=== PATIENT | female | born 1930 | race Caucasian/White ===

== ENCOUNTER 2016-12-30 03:01 | Emergency (ER) | payer MEDICARE, OTHER ==
[~2016-12-30] VITALS: Ht 160 cm; Wt 56.0 kg
[~2016-12-30 03:01] MED LIST: ALIGN PROBIOTIC; ARIC5TAB OR; ASPI325T24 PO; BACT800T5 PO; CALC-197 PO; CENTTAB9 PO; CITA20TA4 PO; CRAN250C2 PO; ESTR42.5V PV; FISH1000 PO; FOLI200T PO; HYDRO2.5%T TOP; LOVA10TA PO; MIRA33502 PO; NEXI20CA PO; SUCR1TAB6 PO; XANA0.5T; [UNRECOGNIZED DRUG - CODE] PO
[2016-12-30 03:03] VITALS: BP 140/70; PULSE 64; RESP 15; TEMP 97.8; O2SAT 96
--- NOTE | 2016-12-30 03:20 | PD ---
HPI Chief Complaint: Fall Time Seen by Provider: 03:12 Travel History International Travel<30 days: No Contact w/Intl Traveler<30days: No Traveled to known affect area: No History of Present Illness HPI WHILE TRYING TO GET OUT OF BED, FOOT GOT CAUGHT ON SHEETS AND SHE HIT HER FOREHEAD ON WOODEN NIGHT STAND, NO LOC, SON CAME SOON AFTER HEARING NOISE AND NO LOC, NO SEIZURE ACTIVITY AND WAS AMBULATORY ON HER OWN. ALSO NO VISUAL CHANGES, NO N/V/ AT THIS POINT PFSH Past Medical History Autoimmune Disease: Yes (ARTHRITIS) Anxiety: Yes Cardiovascular Problems: No High Cholesterol: Yes Dementia: Yes Diminished Hearing: No GERD: Yes Genitourinary: Yes (CHRONIC UTI'S) Musculoskeletal: Yes (OSTEOARTHRITIS) Menopausal: Yes Past Surgical History Abdominal Surgery: Yes (BOWEL SURGERY) Appendectomy: Yes Hysterectomy: Yes Oral Surgery: Yes (JAW WIRED FEB 2012) Social History Alcohol Use: No Tobacco Use: No Substance Use: No Allergies-Medications (Allergen,Severity, Reaction): Coded Allergies: No Known Allergies (Verified , 06/09/14) Reported Meds & Prescriptions Reported Meds & Active Scripts Active Reported Ecotrin Low Strength (Aspirin) 81 Mg Tabdr 81 Mg PO DAILY Sucralfate 1 Gm Tab 1 Gm PO DAILY on empty stomach Memantine 10 Mg Tab 10 Mg PO BID Citalopram (Citalopram Hydrobromide) 40 Mg Tab 40 Mg PO DAILY Donepezil 10 Mg Tab 10 Mg PO HS Estrace Vaginal (Estradiol) 0.01% Cream 1 Appl VAGINAL HS Alprazolam 0.25 Mg Tab 0.25 Mg PO Q4H PRN Alendronate (Alendronate Sodium) 70 Mg Tab 70 Mg PO Q7D [Align Probiotic] DAILY Review of Systems HENT: Positive: Headaches Physical Exam Narrative GENERAL: SKIN: Warm and dry. HEAD: LEFT HEMIFOREHEAD HAS A 5CM SCALP CONTUSION NOTED, NO STEPOFF. Normocephalic. EYES: Pupils equal and round. No scleral icterus. No injection or drainage. NO PHOTOPHOBIA ENT: No nasal bleeding or discharge. Mucous membranes pink and moist. NO HEMOTYMPANUM NECK: Trachea midline. No JVD. CARDIOVASCULAR: Regular rate and rhythm. RESPIRATORY: No accessory muscle use. Clear to auscultation. Breath sounds equal bilaterally. GASTROINTESTINAL: Abdomen soft, non-tender, nondistended. Hepatic and splenic margins not palpable. MUSCULOSKELETAL: Extremities without clubbing, cyanosis, or edema. No obvious deformities. NEUROLOGICAL: Awake and alert. No obvious cranial nerve deficits. Motor grossly within normal limits. Five out of 5 muscle strength in the arms and legs. Normal speech. PSYCHIATRIC: Appropriate mood and affect; insight and judgment normal. Data Data Last Documented VS Vital Signs Date Time Temp Pulse Resp B/P Pulse Ox O2 Delivery O2 Flow Rate FiO2 12/30/16 03:03 97.8 64 15 140/[address] Brain W/O Iv Contrast(Rout) (12/30/16 03:16) Urinalysis - C+S If Indicated (12/30/16 04:07) Labs Laboratory Tests Test 12/30/16 04:10 Urine Color YELLOW Urine Turbidity HAZY Urine pH 6.5 Urine Specific [place] 1.011 Urine Protein NEG mg/dL Urine Glucose (UA) NEG mg/dL Urine Ketones NEG mg/dL Urine Occult Blood NEG Urine Nitrite NEG Urine Bilirubin NEG Urine Urobilinogen LESS THAN 2.0 MG/DL Urine Leukocyte Esterase MOD Urine RBC 2 /hpf Urine WBC 4 /hpf Urine Squamous Epithelial 2 /hpf Cells Urine Renal Epithelial Cells <1 /hpf Urine Mucus FEW /lpf Microscopic Urinalysis Comment CULT NOT INDICATED MDM Medical Decision Making Medical Screen Exam Complete: Yes Emergency Medical Condition: Yes Medical Record Reviewed: Yes Differential Diagnosis ICH V SCALP CONTUSION V SKULL FX Narrative Course PATIENT VSS, AMBULATORY WITHOUT ASSISTANCE, HAD GREAT SENSE OF HUMOR, CT HEAD DIDNOT SHOW ANY ICH NOR ANY SKULL FX Diagnosis Primary Impression: LEFT FRONTAL SCALP CONTUSION Additional Impression: PYURIA Patient Instructions: General Instructions, Scalp Contusion in Adults (ED) Scripts Nitrofurantoin Monohydrate Macrocrystals (Macrobid)100 Mg [id number] Mg PO BID #14 CAP Prov:Mango Ortega MD 12/30/16 Disposition: 01 DISCHARGE HOME Condition: Stable Mango Ortega MD Dec 30, 2016 03:20
[2016-12-30] MEDS ORDERED: ALEN1TAB48 PO (03:21)
[2016-12-30] MEDS ORDERED: MEMA1TAB2 PO (03:21)
[2016-12-30] MEDS ORDERED: SUCR1TAB PO (03:21)
[2016-12-30] MEDS ORDERED: CITA40TA4 PO (03:21)
[2016-12-30] MEDS ORDERED: DONE10TA7 PO (03:21)
[2016-12-30] MEDS ORDERED: ESTR42.5V VAGINAL (03:21)
[2016-12-30] MEDS ORDERED: ALPR0.25 PO (03:21)
[2016-12-30] MEDS ORDERED: ASPI-147 PO (03:21)
--- NOTE | 2016-12-30 03:49 | RADRPT ---
EXAM DATE/TIME: 12/30/2016 03:27 [facility] COMPARISON: CT BRAIN W/O CONTRAST, March 16, 2011, 3:37. INDICATIONS : Trauma, fall. Contusion to left forehead. RADIATION DOSE: 56.35 CTDIvol (mGy) MEDICAL HISTORY : Dementia. SURGICAL HISTORY : None. ENCOUNTER: Initial ACUITY: 1 day PAIN SCALE: 5/10 LOCATION: cranial TECHNIQUE: Multiple contiguous axial images were obtained of the head. Using automated exposure control and adj ustment of the mA and/or kV according to patient size, radiation dose was kept as low as reasonably a chievable to obtain optimal diagnostic quality images. DICOM format image data is available electro nically for review and comparison. FINDINGS: CEREBRUM: The ventricles are normal for age. Diffuse, symmetric cortical atrophy. No evidence of midline shift , mass lesion, hemorrhage or acute infarction. No extra-axial fluid collections are seen. POSTERIOR FOSSA: The cerebellum and brainstem are intact. The 4th ventricle is midline. The cerebellopontine angle i s unremarkable. EXTRACRANIAL: The visualized portion of the orbits is intact. SKULL: The calvaria is intact. No evidence of skull fracture. Small cephalhematoma over the left frontal ayleen ne. CONCLUSION: 1. Small cephalhematoma over the left frontal bone with no associated fracture. 2. Chronic changes with diffuse and symmetric cortical atrophy. 3. No acute intracranial process or trauma. Robert Peters MD on December 30, 2016 at 3:45 Board Certified Radiologist. This report was verified electronically.
[2016-12-30 04:23] LABS: BLOOD, URINE NEG (NEG); COMMENT (UR) CULT NOT INDICATED; CULTURE IF INDICATED CULT NOT INDICATED; GLUCOSE,URINE NEG (NEG); KETONE, URINE NEG (NEG); MUCUS URINE FEW /lpf (OCC); NITRITE,URINE NEG (NEG); PH, URINE 6.5 (5.0-8.5); RENAL EPITHELIAL CELLS <1 /hpf; SQUAMOUS EPITHELIAL CELL URINE 2 /hpf (0-5); URINE COLOR YELLOW (YELLW/STRAW)
[2016-12-30] MEDS ORDERED: MACR100C2 PO (04:30)
== END 2016-12-30 04:41 | disposition home or self-care (01) ==
LOC: NEPC 03:01
DX: S00.03XA Contusion of scalp, initial encounter (principal); N39.0 Urinary tract infection, site not specified; M13.80 Other specified arthritis, unspecified site; F41.9 Anxiety disorder, unspecified; E78.00 Pure hypercholesterolemia, unspecified; F03.90 Unspecified dementia, unspecified severity, without behavioral disturbance, psychotic disturbance, mood disturbance, and anxiety; K21.9 Gastro-esophageal reflux disease without esophagitis; W06.XXXA Fall from bed, initial encounter; W18.09XA Striking against other object with subsequent fall, initial encounter
CPT/HCPCS: 70450; 81001; 99284

== ENCOUNTER 2017-03-09 23:12 | Observation (INO) | payer MEDICARE, OTHER ==
[~2017-03-09] VITALS: Ht 162.6 cm; Wt 65.0 kg
[~2017-03-09 23:12] MED LIST changes: +ALEN1TAB48 PO; +ALPR0.25 PO; -ARIC5TAB OR; +ASPI-147 PO; -ASPI325T24 PO; -BACT800T5 PO; -CALC-197 PO; -CENTTAB9 PO; -CITA20TA4 PO; +CITA40TA4 PO; -CRAN250C2 PO; +DONE10TA7 PO; -ESTR42.5V PV; +ESTR42.5V VAGINAL; -FISH1000 PO; -FOLI200T PO; -HYDRO2.5%T TOP; -LOVA10TA PO; +MACR100C2 PO; +MEMA1TAB2 PO; -MIRA33502 PO; -NEXI20CA PO; +SUCR1TAB PO; -SUCR1TAB6 PO; -XANA0.5T; -[UNRECOGNIZED DRUG - CODE] PO
[2017-03-10] MEDS ORDERED: SODIUM CHLORIDE 0.9% INJ 100 ML ONE (02:20)
[2017-03-10 03:00] VITALS: PULSE 58; RESP 16
[2017-03-10] MEDS ORDERED: NALOXONE HCL 0.4 MG/ML AMP IV PUSH PRN (04:00)
[2017-03-10] MEDS ORDERED: SODIUM CHLORIDE 0.9% FLUSH 10 ML FLUSH IV FLUSH PRN (04:00)
[2017-03-10] MEDS ORDERED: cefTRIAXone 1,000 MG/NS 100 ML IV ONE ×4 (04:15→07:15)
--- NOTE | 2017-03-10 04:33 | HHI.HP ---
[facility] Edwige Murdock MD Admission Diagnosis Diagnoses: Chief Complaint: ams Travel History International Travel<30 Days: No Contact w/Intl Traveler <30 Da: No History of Present Illness Written by PAMELA Arellano acting as scribe for [Ulices] on 03/10/17 at 04: 28. 87 y/o female with a history of dementia, and depression was brought into the ED by her son for increased confusion. Per the patient she does not know why she is here. Per the ED physician the son stated the patient was sitting on the toilet and starring off and mumbling. She denies any chest pain, sob, fever, chills. She states she has to pee. While on the bed howard she does complain of a burning sensation. Son is not at bedside for questioning. Review of Systems Except as stated in HPI: all other systems reviewed are Neg Past Family Social History Past Medical History Dementia Depression Past Surgical History Hysterectomy Reported Medications Reported Meds & Active Scripts Active Macrobid (Nitrofurantoin Monohydrate Macrocrystals) 100 Mg Capsule 100 Mg PO BID Reported Ecotrin Low Strength (Aspirin) 81 Mg Tabdr 81 Mg PO DAILY Sucralfate 1 Gm Tab 1 Gm PO DAILY on empty stomach Memantine 10 Mg Tab 10 Mg PO BID Citalopram (Citalopram Hydrobromide) 40 Mg Tab 40 Mg PO DAILY Donepezil 10 Mg Tab 10 Mg PO HS Estrace Vaginal (Estradiol) 0.01% Cream 1 Appl VAGINAL HS Alprazolam 0.25 Mg Tab 0.25 Mg PO Q4H PRN Alendronate (Alendronate Sodium) 70 Mg Tab 70 Mg PO Q7D [Align Probiotic] DAILY Allergies: Coded Allergies: No Known Allergies (Verified , 06/09/14) Active Ordered Medications Current Medications Medications (Trade) Dose Ordered Sig/Abraham Route Start Time Stop Time Status Last Admin (NS Flush) 2 ml UNSCH PRN IV FLUSH 03/10/17 04:00 (NS Flush) 2 ml BID IV FLUSH 03/10/17 09:00 (Narcan Inj) 0.4 mg UNSCH PRN IV PUSH 03/10/17 04:00 Ceftriaxone Sodium 1000 mg/ Sodium Chloride 100 ml @ 200 mls/hr ONCE ONCE IV 03/10/17 04:15 03/10/17 04:44 Family History Patient denies any family history. Social History Tobacco use: Denies Alcohol use: wine occasionally Physical Exam Physical Exam GENERAL: This is a well-nourished, well-developed patient. SKIN: No rashes, ecchymoses or lesions. Cool and dry. HEAD: Atraumatic. Normocephalic. EYES: Pupils equal round and reactive. ENT: Nose without bleeding, purulent drainage or septal hematoma. Airway patent. NECK: Trachea midline. No JVD or lymphadenopathy. CARDIOVASCULAR: Regular rate and rhythm without murmurs, gallops, or rubs. RESPIRATORY: Clear to auscultation. Breath sounds equal bilaterally. No wheezes , rales, or rhonchi. GASTROINTESTINAL: Abdomen soft, non-tender, nondistended. MUSCULOSKELETAL: Extremities without clubbing, cyanosis, or edema. No joint tenderness, effusion, or edema noted. No calf tenderness. NEUROLOGICAL: Awake and confused. Motor and sensory grossly within normal limits. Normal speech. Caprini VTE Risk Assessment Caprini VTE Risk Assessment: Mod/High Risk (score >= 2) Caprini Risk Assessment Model Point Value = 1 Point Value = 2 Point Value = 3 Point Value = 5 Age 41-60 Minor surgery BMI > 25 kg/m2 Swollen legs Varicose veins or History of unexplained or recurrent spontaneous Oral contraceptives or hormone replacement Sepsis (< 1 month) Serious lung disease, including pneumonia (< 1 month) Abnormal pulmonary function Acute myocardial infarction Congestive heart failure (< 1 month) History of inflammatory bowel disease Medical patient at bed rest Age 61-74 Arthroscopic surgery Major open surgery (> 45 min) Laparoscopic surgery (> 45 min) Malignancy Confined to bed (> 72 hours) Immobilizing plaster cast Central venous access Age >= 75 History of VTE Family history of VTE Factor V Leiden Prothrombin [id number] Lupus anticoagulant Anticardiolipin antibodies Elevated serum homocysteine Heparin-induced thrombocytopenia Other congenital or acquired thrombophilia Stroke (< 1 month) Elective arthroplasty Hip, pelvis, or leg fracture Acute spinal cord injury (< 1 month) Prophylaxis Regimen Total Risk Factor Score Risk Level Prophylaxis Regimen 0-1 Low Early ambulation 2 Moderate Order ONE of the following: *Sequential Compression Device (SCD) *Heparin 5000 units SQ BID 3-4 Higher Order ONE of the following medications: *Heparin 5000 units SQ TID *Enoxaparin/Lovenox 40 mg SQ daily (WT < 150 kg, CrCl > 30 mL/min) *Enoxaparin/Lovenox 30 mg SQ daily (WT < 150 kg, CrCl > 10-29 mL/min) *Enoxaparin/Lovenox 30 mg SQ BID (WT < 150 kg, CrCl > 30 mL/min) AND/OR *Sequential Compression Device (SCD) 5 or more Highest Order ONE of the following medications: *Heparin 5000 units SQ TID (Preferred with Epidurals) *Enoxaparin/Lovenox 40 mg SQ daily (WT < 150 kg, CrCl > 30 mL/min) *Enoxaparin/Lovenox 30 mg SQ daily (WT < 150 kg, CrCl > 10-29 mL/min) *Enoxaparin/Lovenox 30 mg SQ BID (WT < 150 kg, CrCl > 30 mL/min) AND *Sequential Compression Device (SCD) Assessment and Plan Problem List: (1) Acute encephalopathy ICD Code: G93.40 - Encephalopathy, unspecified Status: Acute (2) Dementia ICD Code: F03.90 - Unspecified dementia without behavioral disturbance Assessment and Plan 87 y/o female with a history of dementia, and depression was brought into the ED by her son for increased confusion. Acute encephalopathy, suspected due to UTI Abnormal UA Head CT reviewed and shows no acute abnormalities. -Rocephin given in ED, Start Ciprofloxacin IV Q12hr -CBC pending Dementia, chronic: Reorder home medications DVT prophylaxis: SCDs This note was transcribed by juliann [Brynn Rogel]. I, Dr. Derek Elena personally performed the history, physical exam, and medical decision making; and confirmed the accuracy of the information in the transcribed note. Authenticated by Dr. Derek Elena on 03/10/17 at 04:28. Discussed Condition With Patient and Brynn Gallego Mar 10, 2017 04:33 Derek Elena MD Mar 10, 2017 10:03
[2017-03-10] MEDS ORDERED: ALPRAZolam 0.25 MG TAB PO PRN (04:45)
[2017-03-10 05:00] LABS: AUTOMATED NEUTROPHIL # 4.7 TH/MM3 (1.8-7.7); BASOPHIL # 0.1 TH/MM3 (0-0.2); BASOPHIL % 1.4 % (0.0-2.0); EOSINOPHIL # 0.2 TH/MM3 (0-0.4); EOSINOPHIL % 2.2 % (0.0-4.0); HEMATOCRIT 33.1 % (35.0-46.0); HEMO FLAGS DIFF FINAL; LYMPH % 27.4 % (9.0-44.0); LYMPHOCYTE # 2.1 TH/MM3 (1.0-4.8); MEAN CELL VOLUME 94.3 FL (80.0-100.0); MEAN CORPUSCULAR HEMOGLOBIN 31.8 PG (27.0-34.0); MEAN CORPUSCULAR HGB CONC 33.8 % (32.0-36.0); MONO % 9.3 % (0.0-8.0); NEUT % 59.7 % (16.0-70.0); PLATELET COUNT 169 TH/MM3 (150-450); RED BLOOD COUNT 3.51 MIL/MM3 (4.00-5.30); RED CELL DISTRIBUTION WIDTH 13.9 % (11.6-17.2); WHITE BLOOD COUNT 7.8 TH/MM3 (4.0-11.0)
[2017-03-10 05:07] LABS: APTT (PATIENT) 22.4 SEC (24.3-30.1); PROTHROMBIN TIME - PATIENT 11.3 SEC (9.8-11.6)
--- NOTE | 2017-03-10 05:27 | PD ---
HPI Chief Complaint: Altered Mental Status Time Seen by Provider: 03:56 Travel History International Travel<30 days: No Contact w/Intl Traveler<30days: No Traveled to known affect area: No History of Present Illness HPI Patient is a 87 year old female, with history of dementia, who is BIBEMS due to an episode of AMS at home. Patient reports she has some lower abdominal pain. She says she does not know why she is here. Per son, she has dementia, but she is usually been able to stay at home while he is at work. He says he came home to find her sitting on the toilet completely dressed and staring blankly. He was nervous, so he called EMS. He does say that she was diagnosed with a urinary tract infection a week ago and was taking antibiotics. PFSH Past Medical History Autoimmune Disease: Yes (ARTHRITIS) Anxiety: Yes Cardiovascular Problems: No High Cholesterol: Yes Dementia: Yes Diminished Hearing: No GERD: Yes Genitourinary: Yes (CHRONIC UTI'S) Musculoskeletal: Yes (OSTEOARTHRITIS) Menopausal: Yes Past Surgical History Abdominal Surgery: Yes (BOWEL SURGERY) Appendectomy: Yes Hysterectomy: Yes Oral Surgery: Yes (JAW WIRED FEB 2012) Social History Alcohol Use: No Tobacco Use: No Substance Use: No Allergies-Medications (Allergen,Severity, Reaction): Coded Allergies: No Known Allergies (Verified , 06/09/14) Reported Meds & Prescriptions Reported Meds & Active Scripts Active Macrobid (Nitrofurantoin Monohydrate Macrocrystals) 100 Mg Capsule 100 Mg PO BID Reported Ecotrin Low Strength (Aspirin) 81 Mg Tabdr 81 Mg PO DAILY Sucralfate 1 Gm Tab 1 Gm PO DAILY on empty stomach Memantine 10 Mg Tab 10 Mg PO BID Citalopram (Citalopram Hydrobromide) 40 Mg Tab 40 Mg PO DAILY Donepezil 10 Mg Tab 10 Mg PO HS Estrace Vaginal (Estradiol) 0.01% Cream 1 Appl VAGINAL HS Alprazolam 0.25 Mg Tab 0.25 Mg PO Q4H PRN Alendronate (Alendronate Sodium) 70 Mg Tab 70 Mg PO Q7D [Align Probiotic] DAILY Review of Systems ROS Limitations: Altered Mental Status Physical Exam Narrative GENERAL: Awake and alert, in no acute distress. SKIN: Focused skin assessment warm/dry. HEAD: Atraumatic. Normocephalic. EYES: Pupils equal and round. No scleral icterus. ENT: Mucous membranes pink and moist. NECK: Trachea midline. No JVD. CARDIOVASCULAR: Regular rate and rhythm. No murmur appreciated. RESPIRATORY: No accessory muscle use. Clear to auscultation. Breath sounds equal bilaterally. GASTROINTESTINAL: Abdomen soft, non-tender, nondistended. MUSCULOSKELETAL: No obvious deformities. No clubbing. No cyanosis. No edema. NEUROLOGICAL: Awake and alert. No obvious cranial nerve deficits. Motor grossly within normal limits. Normal speech. PSYCHIATRIC: Appropriate mood and affect; insight and judgment normal. Data Data Last Documented VS Vital Signs Date Time Temp Pulse Resp B/P (MAP) Pulse Ox O2 Delivery O2 Flow Rate FiO2 03/10/17 03:00 58 16 Labs Laboratory Tests Test 03/10/17 00:51 White Blood Count 7.8 TH/MM3 Red Blood Count 3.51 MIL/MM3 Hemoglobin 11.2 GM/DL Hematocrit 33.1 % Mean Corpuscular Volume 94.3 FL Mean Corpuscular Hemoglobin 31.8 PG Mean Corpuscular Hemoglobin Concent 33.8 % Red Cell Distribution Width 13.9 % Platelet Count 169 TH/MM3 Mean Platelet Volume 11.4 FL Neutrophils (%) (Auto) 59.7 % Lymphocytes (%) (Auto) 27.4 % Monocytes (%) (Auto) 9.3 % Eosinophils (%) (Auto) 2.2 % Basophils (%) (Auto) 1.4 % Neutrophils # (Auto) 4.7 TH/MM3 Lymphocytes # (Auto) 2.1 TH/MM3 Monocytes # (Auto) 0.7 TH/MM3 Eosinophils # (Auto) 0.2 TH/MM3 Basophils # (Auto) 0.1 TH/MM3 CBC Comment DIFF FINAL Differential Comment Prothrombin Time 11.3 SEC Prothromb Time International Ratio 1.0 RATIO Activated Partial Thromboplast Time 22.4 SEC [facility] Medical Decision Making Medical Screen Exam Complete: Yes Emergency Medical Condition: Yes Medical Record Reviewed: Yes Differential Diagnosis UTI versus sepsis versus dehydration versus electrolyte abnormality Narrative Course Patient is a 87-year-old female comes in due to an episode of altered mental status. Exam shows no acute abnormalities. Patient is alert, oriented to person. IV established, labs sent. Labs show no elevation in white blood cell count, electrolytes are within normal limits. Urinalysis is positive for UTI. Patient given IV fluids and a dose of Rocephin. She will be placed in observation for a urinary tract infection with altered mental status. Diagnosis Primary Impression: Urinary tract infection Qualified Codes: N30.00 - Acute cystitis without hematuria Additional Impression: Altered mental status Qualified Codes: R41.82 - Altered mental status, unspecified Admitting Information Admitting Physician Requests: Observation Condition: Stable Cecelia Cool MD Mar 10, 2017 05:26
[2017-03-10 06:49] LABS: BLOOD, URINE NEG (NEG); CALCIUM OXALATE CRYSTALS,URINE RARE /hpf; COMMENT (UR) CULTURE INDICATED; CULTURE IF INDICATED CULTURE INDICATED; GLUCOSE,URINE NEG (NEG); KETONE, URINE TRACE mg/dL (NEG); MUCUS URINE FEW /lpf (OCC); NITRITE,URINE NEG (NEG); PH, URINE 5.5 (5.0-8.5); URINE COLOR YELLOW (YELLW/STRAW)
[2017-03-10 06:59] LABS: BLOOD UREA NITROGEN 21 MG/DL (7-18); GLOMERULAR FILTRATION RATE 70 ML/MIN (>89)
[2017-03-10 07:01] LABS: ANION GAP 6 MEQ/L (5-15); BICARBONATE 25.5 MEQ/L (21.0-32.0); CHLORIDE 107 MEQ/L (98-107); SODIUM (NA) 138 MEQ/L (136-145)
[2017-03-10 07:19] VITALS: BP 163/77; PULSE 62; RESP 19; O2SAT 100
[2017-03-10 07:56] LABS: ALKALINE PHOSPHATASE 41 U/L (45-117); AST (GOT) 16 U/L (15-37)
[2017-03-10 07:57] LABS: ALT (GPT) 18 U/L (10-53); TOTAL BILIRUBIN ADULT 0.3 MG/DL (0.2-1.0)
[2017-03-10] MEDS: CIPROFLOXACIN 400 MG PREMIX 200 ML IV SCH ×2 (08:57→20:11)
[2017-03-10] MEDS: MEMANTINE HCL 10 MG TAB PO SCH ×2 (08:59→20:10)
[2017-03-10] MEDS: CITALOPRAM HYDROBROMIDE 40 MG TAB PO SCH (08:59)
[2017-03-10] MEDS: ASPIRIN EC 81 MG TABEC PO SCH (08:59)
[2017-03-10] MEDS: SODIUM CHLORIDE 0.9% FLUSH 10 ML FLUSH IV FLUSH SCH ×2 (09:00→20:11)
[2017-03-10] MEDS: SUCRALFATE 1 GM TAB PO SCH (09:00)
--- NOTE | 2017-03-10 09:05 | RADRPT ---
EXAM DATE/TIME: 03/10/2017 00:59 [facility] COMPARISON: No previous studies available for comparison. INDICATIONS : Shortness of breath. MEDICAL HISTORY : None. SURGICAL HISTORY : None. ENCOUNTER: Initial ACUITY: 1 day PAIN SCORE: 0/10 LOCATION: chest FINDINGS: A single view of the chest demonstrates the lungs to be symmetrically aerated without evidence of mas s, infiltrate or effusion. The cardiomediastinal contours are unremarkable. Osseous structures are intact. CONCLUSION: No acute cardiopulmonary process. Robert Peters MD on March 10, 2017 at 1:16 Board Certified Radiologist. This report was verified electronically.
--- NOTE | 2017-03-10 09:12 | RADRPT ---
EXAM DATE/TIME: 03/10/2017 00:43 [facility] COMPARISON: CT BRAIN W/O CONTRAST, December 30, 2016, 3:27. INDICATIONS : Altered mental status. RADIATION DOSE: 52.13 CTDIvol (mGy) MEDICAL HISTORY : Non-responsive. SURGICAL HISTORY : Non-responsive. ENCOUNTER: Initial ACUITY: 1 day PAIN SCALE: Non-responsive LOCATION: cranial TECHNIQUE: Multiple contiguous axial images were obtained of the head. Using automated exposure control and adj ustment of the mA and/or kV according to patient size, radiation dose was kept as low as reasonably a chievable to obtain optimal diagnostic quality images. DICOM format image data is available electro nically for review and comparison. FINDINGS: CEREBRUM: Stable, symmetric cortical and central atrophy with periventricular small vessel ischemic demyelinati on. No evidence of midline shift, mass lesion, hemorrhage or acute infarction. No extra-axial fluid collections are seen. POSTERIOR FOSSA: The cerebellum and brainstem are intact. The 4th ventricle is midline. The cerebellopontine angle i s unremarkable. EXTRACRANIAL: The visualized portion of the orbits is intact. SKULL: The calvaria is intact. No evidence of skull fracture. CONCLUSION: 1. Stable chronic changes with cortical and central atrophy as well as some degree of periventricular small vessel ischemic demyelination. 2. Nothing acute. Robert Peters MD on March 10, 2017 at 1:09 Board Certified Radiologist. This report was verified electronically.
[2017-03-10 12:05] LABS: CREATINE KINASE 45 U/L (26-192)
[2017-03-10 12:35] VITALS: BP 133/63; PULSE 60; RESP 16; TEMP 97.4; O2SAT 98
--- NOTE | 2017-03-10 13:59 | EKG ---
Date Performed: 03/10/2017 Time Performed: 08:07:14 PTAGE: 87 years EKG: Baseline artifact present SINUS BRADYCARDIA MINIMAL ST DEPRESSION PROLONGED QT INTERVAL ABN ORMAL ECG Compared to prior electrocardiogram, rate has decreased DOCTOR: Paulino Martínez Interpretating Date/Time 03/10/2017 13:59:00
[2017-03-10 15:51] VITALS: BP 125/58; PULSE 63; RESP 16; TEMP 97.8; O2SAT 98
[2017-03-10 19:29] LABS: CREATINE KINASE 51 U/L (26-192)
[2017-03-10 20:00] VITALS: PULSE 78
[2017-03-10] MEDS: DONEPEZIL HCL 5 MG TAB PO SCH (20:10)
[2017-03-10 21:07] VITALS: BP 118/61; PULSE 67; RESP 18; TEMP 98.4; O2SAT 97
[2017-03-11] VITALS (12 sets, daily range): BP systolic 108–141; BP diastolic 58–68; PULSE 54–78; RESP 16–18; TEMP 97.8–98.1; O2SAT 94–98
[2017-03-11] MEDS: SODIUM CHLORIDE 0.9% FLUSH 10 ML FLUSH IV FLUSH SCH ×2 (09:00→21:00)
[2017-03-11] MEDS: ASPIRIN EC 81 MG TABEC PO SCH (09:33)
[2017-03-11] MEDS: MEMANTINE HCL 10 MG TAB PO SCH ×2 (09:33→20:06)
[2017-03-11] MEDS: SUCRALFATE 1 GM TAB PO SCH (09:33)
[2017-03-11] MEDS: CITALOPRAM HYDROBROMIDE 40 MG TAB PO SCH (09:33)
[2017-03-11] MEDS: CIPROFLOXACIN 400 MG PREMIX 200 ML IV SCH ×2 (09:35→20:10)
[2017-03-11 09:44] LABS: AUTOMATED NEUTROPHIL # 4.7 TH/MM3 (1.8-7.7); BASOPHIL # 0.1 TH/MM3 (0-0.2); BASOPHIL % 1.2 % (0.0-2.0); EOSINOPHIL # 0.4 TH/MM3 (0-0.4); EOSINOPHIL % 4.8 % (0.0-4.0); HEMATOCRIT 34.6 % (35.0-46.0); HEMO FLAGS DIFF FINAL; LYMPH % 26.9 % (9.0-44.0); LYMPHOCYTE # 2.3 TH/MM3 (1.0-4.8); MEAN CELL VOLUME 94.9 FL (80.0-100.0); MEAN CORPUSCULAR HEMOGLOBIN 30.5 PG (27.0-34.0); MEAN CORPUSCULAR HGB CONC 32.2 % (32.0-36.0); MONO % 11.2 % (0.0-8.0); NEUT % 55.9 % (16.0-70.0); PLATELET COUNT 171 TH/MM3 (150-450); RED BLOOD COUNT 3.65 MIL/MM3 (4.00-5.30); RED CELL DISTRIBUTION WIDTH 14.1 % (11.6-17.2); WHITE BLOOD COUNT 8.4 TH/MM3 (4.0-11.0)
[2017-03-11 09:50] LABS: BICARBONATE 22.5 MEQ/L (21.0-32.0); POTASSIUM 3.8 MEQ/L (3.5-5.1)
[2017-03-11] MEDS ORDERED: PNEUMOCOCCAL POLYVALENT INJ 25 MCG/0.5 ML SYR IM ONE (10:00)
[2017-03-11] MEDS ORDERED: ONDANSETRON HCL 4 MG/2 ML VIAL IV PUSH PRN (10:45)
--- NOTE | 2017-03-11 14:58 | HHI.PR ---
Subjective Remarks Follow-up for UTI and confusion. The patient states that she has been feeling poorly lately. She states that she sleepy today. She has been having poor appetite and nausea, no vomiting, tolerating some oral intake. She's been urinating a lot and having burning with urination. She denies any fevers or chills. She is not sure if she was on antibiotics recently. She lives at home with her son. She states the year is 2013 and does not know the month. She is oriented to person and place. Objective Vitals Vital Signs Date Time Temp Pulse Resp B/P (MAP) Pulse Ox O2 Delivery O2 Flow Rate FiO2 03/11/17 11:42 98.0 58 16 130/63 (85) 98 03/11/17 10:54 57 03/11/17 08:06 98.0 60 16 137/66 (89) 98 03/11/17 04:00 57 03/11/17 00:52 97.8 54 18 141/66 (91) 97 03/11/17 00:02 56 03/10/17 21:07 98.4 67 18 118/61 (80) 97 03/10/17 20:00 78 03/10/17 15:51 97.8 63 16 125/58 (80) 98 I/O 03/10/17 03/10/17 03/10/17 03/11/17 03/11/17 03/11/17 07:00 15:00 23:00 07:00 15:00 23:00 Intake Total 420 ml Balance 420 ml Intake Oral 120 ml IV Total 300 ml # Voids 2 Result Diagram: 03/11/1715 03/11/1715 Imaging Last Impressions Head CT 03/10/17 0000 Signed Impressions: Service Date/Time: Friday, March 10, 2017 00:43 - CONCLUSION: 1. Stable chronic changes with cortical and central atrophy as well as some degree of periventricular small vessel ischemic demyelination. 2. Nothing acute. Robert Peters MD Chest X-Ray 03/10/17 0000 Signed Impressions: Service Date/Time: Friday, March 10, 2017 00:59 - CONCLUSION: No acute cardiopulmonary process. Robert Peters MD Objective Remarks GENERAL: Well-developed well-nourished frail elderly lady. In no acute distress. Oriented to person and place. SKIN: Warm and dry. No lesions noted. HEENT: Normocephalic. Pupils equal and round. Mucous membranes pink and moist. CARDIOVASCULAR: Regular rate and rhythm. No murmur appreciated. RESPIRATORY: No accessory muscle use. Clear to auscultation. Breath sounds equal bilaterally. GASTROINTESTINAL: Abdomen soft, non-tender, nondistended. Bowel sounds x4. MUSCULOSKELETAL: No obvious deformities. No clubbing or cyanosis. No edema. NEUROLOGICAL: Awake and alert. No focal neurological deficits. Moves upper and lower extremities spontaneously. Normal speech. PSYCHIATRIC: Appropriate mood and affect; insight and judgment fair. A/P Problem List: (1) Acute encephalopathy ICD Code: G93.40 - Encephalopathy, unspecified Status: Acute (2) Dementia ICD Code: F03.90 - Unspecified dementia without behavioral disturbance Status: Chronic (3) Urinary tract infection ICD Code: N39.0 - Urinary tract infection, site not specified Status: Acute Assessment and Plan 87 y/o female with a history of dementia who was brought into the ED by her son for increased confusion. Acute encephalopathy: History of dementia but son had been noticing worsening confusion recently. Likely secondary to UTI as below. Seems to be improving. Reviewed: Head CT was stable chronic changes, nothing acute. Afebrile with no leukocytosis. UTI: UA with evidence of UTI and patient complaining of dysuria, urinary frequency, and having confusion as above. Failed outpatient Macrobid? -Continue on IV Cipro for now and follow-up urine culture Nausea: Likely secondary to UTI as above. Labs with no signs of dehydration. -Continue IV Zofran and Phenergan suppository as needed. Dementia, chronic: -Continue home medications DVT prophylaxis: SCDs Discharge Planning Questionable failed outpatient therapy with Macrobid, will need to follow-up urine culture and sensitivity prior to discharge. Problem Qualifiers (1) Urinary tract infection: Qualified Codes: N30.00 - Acute cystitis without hematuria Alfonzo José Mar 11, 2017 14:58
[2017-03-11] MEDS ORDERED: PROMETHAZINE HCL 25 MG SUPP RECTAL PRN (15:00)
[2017-03-11] MEDS: DONEPEZIL HCL 5 MG TAB PO SCH (20:06)
[2017-03-12] VITALS: PULSE 59
[2017-03-12 04:48] VITALS: BP 114/67; PULSE 67; RESP 16; TEMP 98.4; O2SAT 94
[2017-03-12 06:02] VITALS: PULSE 64
[2017-03-12 07:24] VITALS: PULSE 58
[2017-03-12 07:41] VITALS: BP 113/53; PULSE 61; RESP 16; TEMP 98; O2SAT 95
[2017-03-12] MEDS ORDERED: AMOXICILLIN/CLAVULANATE K 875 MG TAB PO SCH (09:00)
[2017-03-12] MEDS: ASPIRIN EC 81 MG TABEC PO SCH (09:06)
[2017-03-12] MEDS: CITALOPRAM HYDROBROMIDE 40 MG TAB PO SCH (09:06)
[2017-03-12] MEDS: SODIUM CHLORIDE 0.9% FLUSH 10 ML FLUSH IV FLUSH SCH (09:06)
[2017-03-12] MEDS: MEMANTINE HCL 10 MG TAB PO SCH (09:06)
[2017-03-12] MEDS: SUCRALFATE 1 GM TAB PO SCH (09:06)
[2017-03-12] MEDS ORDERED: AMOX875T2 PO (10:37)
[2017-03-12] MEDS ORDERED: ZOFR4TAB PO (10:39)
[2017-03-12] MEDS ORDERED: PHEN0.4T PO (10:40)
--- NOTE | 2017-03-12 10:43 | HHI.PR ---
Subjective Remarks Follow-up for UTI. The patient continues to complain of suprapubic pressure and burning with urination. Her nausea has improved some and she's been tolerating some oral intake with no vomiting. She would like to go home today. Discussed with her son over the phone who feels that the patient has gotten much better the past 2 days and he is agreeable with the plan of care for discharge home today on oral antibiotics for follow-up with PCP. Objective Vitals Vital Signs Date Time Temp Pulse Resp B/P (MAP) Pulse Ox O2 Delivery O2 Flow Rate FiO2 03/12/17 07:41 98.0 61 16 113/53 (73) 95 03/12/17 07:24 58 03/12/17 06:02 64 03/12/17 04:48 98.4 67 16 114/67 (83) 94 03/12/17 00:00 59 03/11/17 23:57 98.1 64 18 108/62 (77) 94 03/11/17 20:46 98.0 67 18 118/68 (85) 97 03/11/17 20:00 67 03/11/17 16:36 97.9 59 16 117/58 (77) 96 03/11/17 15:17 56 03/11/17 11:42 98.0 58 16 130/63 (85) 98 03/11/17 10:54 57 I/O 03/11/17 03/11/17 03/11/17 03/12/17 03/12/17 03/12/17 07:00 15:00 23:00 07:00 15:00 23:00 Intake Total 340 ml Balance 340 ml Intake Oral 140 ml IV Total 200 ml Result Diagram: 03/11/17 0815 03/11/17 0815 Imaging Last Impressions Head CT 03/10/17 0000 Signed Impressions: Service Date/Time: Friday, March 10, 2017 00:43 - CONCLUSION: 1. Stable chronic changes with cortical and central atrophy as well as some degree of periventricular small vessel ischemic demyelination. 2. Nothing acute. Robert Peters MD Chest X-Ray 03/10/17 0000 Signed Impressions: Service Date/Time: Friday, March 10, 2017 00:59 - CONCLUSION: No acute cardiopulmonary process. Robert Peters MD Objective Remarks GENERAL: Well-developed well-nourished frail elderly lady. In no acute distress. Oriented to person and place. SKIN: Warm and dry. No lesions noted. HEENT: Normocephalic. Pupils equal and round. Mucous membranes pink and moist. CARDIOVASCULAR: Regular rate and rhythm. No murmur appreciated. RESPIRATORY: No accessory muscle use. Clear to auscultation. Breath sounds equal bilaterally. GASTROINTESTINAL: Abdomen soft, non-tender, nondistended. Bowel sounds x4. MUSCULOSKELETAL: No obvious deformities. No clubbing or cyanosis. No edema. NEUROLOGICAL: Awake and alert. No focal neurological deficits. Moves upper and lower extremities spontaneously. Normal speech. PSYCHIATRIC: Appropriate mood and affect; insight and judgment fair. A/P Problem List: (1) Acute encephalopathy ICD Code: G93.40 - Encephalopathy, unspecified Status: Resolved (2) Dementia ICD Code: F03.90 - Unspecified dementia without behavioral disturbance Status: Chronic (3) Urinary tract infection ICD Code: N39.0 - Urinary tract infection, site not specified Status: Acute Assessment and Plan 87 y/o female with a history of dementia who was brought into the ED by her son for increased confusion. Acute encephalopathy: History of dementia but son had been noticing worsening confusion recently. Likely secondary to UTI as below. Discussed with son, improved. Reviewed: Head CT was stable chronic changes, nothing acute. Afebrile with no leukocytosis. -To UTI as below UTI: UA with evidence of UTI and patient complaining of dysuria, urinary frequency, and having confusion as above. Failed outpatient Macrobid? -Urine culture grew resistant Proteus, started on Augmentin based on sensitivities -Give Pyridium 2 days for symptoms of dysuria Nausea: Likely secondary to UTI as above. Labs with no signs of dehydration. -Continue Zofran as needed Dementia, chronic: -Continue home medications DVT prophylaxis: SCDs Discharge Planning Discharge patient to home Condition on discharge: Improved Regular Diet as tolerated Regular activity Rx written: Augmentin, Zofran, Pyridium Follow-up with primary care physician Problem Qualifiers (1) Dementia: Qualified Codes: F03.90 - Unspecified dementia without behavioral disturbance (2) Urinary tract infection: Qualified Codes: N30.00 - Acute cystitis without hematuria Alfonzo José Mar 12, 2017 10:43
[2017-03-12] MEDS ORDERED: PHENAZOPYRIDINE HCL 100 MG TAB PO SCH (11:00)
[2017-03-12 11:29] VITALS: BP 134/63; PULSE 55; RESP 16; TEMP 98.1; O2SAT 97
== END 2017-03-12 12:25 | disposition home or self-care (01) ==
LOC: NEPE 23:12 → NEDA 03-10 03:15 → NEPFCDU 03-10 12:17
PROVIDERS: ADMIT Internal Medicine; ATTEND Internal Medicine
DX: G93.40 Encephalopathy, unspecified (principal); F03.90 Unspecified dementia, unspecified severity, without behavioral disturbance, psychotic disturbance, mood disturbance, and anxiety; N30.00 Acute cystitis without hematuria; B96.4 Proteus (mirabilis) (morganii) as the cause of diseases classified elsewhere; K21.9 Gastro-esophageal reflux disease without esophagitis; E78.00 Pure hypercholesterolemia, unspecified; R94.31 Abnormal electrocardiogram [ECG] [EKG]; Z23 Encounter for immunization
CPT/HCPCS: 70450; 71010; 80048; 80053; 81001; 82550; 84484; 85025; 85610; 85730; 87077; 87086; 87186; 90732; 93005; 96365; 96366; 96372; 96375; 99285; G0378; J0696; J0744; J2405

== ENCOUNTER 2017-03-12 16:36 | Inpatient (IN) | payer MEDICARE, OTHER ==
[~2017-03-12] VITALS: Ht 157.5 cm; Wt 44.0 kg
[~2017-03-12 16:36] MED LIST changes: +AMOX875T2 PO; +PHEN0.4T PO; +ZOFR4TAB PO
[2017-03-12 16:39] VITALS: BP 128/69; PULSE 89; RESP 17; TEMP 97.7; O2SAT 96
[2017-03-12 17:00] VITALS: BP 160/70; PULSE 76; RESP 16; O2SAT 100
[2017-03-12] MEDS ORDERED: SODIUM CHLORID 0.9% 500 ML INJ 500 ML IV ONE ×2 (17:15→18:30)
[2017-03-12] MEDS ORDERED: SODIUM CHLORIDE 0.9% FLUSH 10 ML FLUSH IVF PRN (17:15)
[2017-03-12] MEDS ORDERED: ONDANSETRON HCL 4 MG/2 ML VIAL IVP ONE (17:15)
--- NOTE | 2017-03-12 17:19 | PD ---
HPI Chief Complaint: Syncope/Near-Syncope Time Seen by Provider: 16:59 Travel History International Travel<30 days: No Contact w/Intl Traveler<30days: No Traveled to known affect area: No History of Present Illness HPI 87-year-old female presents to the emergency department with her son for evaluation of syncopal episode that occurred just prior to arrival. Patient was discharged today after being admitted for altered mental status UTI. Her son is at bedside and states that she was back to her baseline when he picked her up. However, when they got home, about 15 minutes later, she had an episode of unresponsiveness. He states that she was unresponsive for about 10 minutes. She fell back, but he was able to catch her. She had no head injury. He states that he called EMS at that time and he did not have her transported. However, she has been vomiting and having multiple bowel movement since. He came concerned that she was getting dehydrated. The patient states that she does not feel well and complains of dizziness and abdominal pain. Patient denies any chest pain. She does report some mild shortness of breath. Patient is dry heaving on my exam. She does have history of dementia and depression. PFSH Past Medical History Autoimmune Disease: Yes (ARTHRITIS) Blood Disorders: No Anxiety: Yes Depression: No Cancer: No Cardiovascular Problems: Yes High Cholesterol: Yes Dementia: Yes Diminished Hearing: No Endocrine: No GERD: Yes Genitourinary: Yes (CHRONIC UTI'S) Immune Disorder: No Musculoskeletal: Yes (OSTEOARTHRITIS) Neurologic: No Psychiatric: Yes Reproductive: No Respiratory: No Menopausal: Yes Past Surgical History Abdominal Surgery: Yes (BOWEL SURGERY) Appendectomy: Yes Hysterectomy: Yes Oral Surgery: Yes (JAW WIRED FEB 2012) Social History Alcohol Use: No Tobacco Use: No Substance Use: No Allergies-Medications (Allergen,Severity, Reaction): Coded Allergies: No Known Allergies (Verified , 03/12/17) Reported Meds & Prescriptions Reported Meds & Active Scripts Active Pyridium (Phenazopyridine HCl) 100 Mg Tab 100 Mg PO Q8HR Zofran (Ondansetron HCl) 4 Mg Tab 4 Mg PO Q6HR PRN Amoxicillin-Clavulanate 875-125 mg Tab 875 Mg PO Q12HR not for use in CrCl <30 mL/minute Reported Ecotrin Low Strength (Aspirin) 81 Mg Tabdr 81 Mg PO DAILY Sucralfate 1 Gm Tab 1 Gm PO DAILY on empty stomach Memantine 10 Mg Tab 10 Mg PO BID Citalopram (Citalopram Hydrobromide) 40 Mg Tab 40 Mg PO DAILY Donepezil 10 Mg Tab 10 Mg PO HS Estrace Vaginal (Estradiol) 0.01% Cream 1 Appl VAGINAL HS Alprazolam 0.25 Mg Tab 0.25 Mg PO Q4H PRN Alendronate (Alendronate Sodium) 70 Mg Tab 70 Mg PO Q7D [Align Probiotic] DAILY Review of Systems Except as stated in HPI: all other systems reviewed are Neg Physical Exam Narrative GENERAL: Well-nourished, well-developed elderly female patient, pale. Afebrile. SKIN: Focused skin assessment warm/dry. HEAD: Normocephalic. Atraumatic. EYES: No scleral icterus. No injection or drainage. NECK: Supple, trachea midline. No JVD or lymphadenopathy. CARDIOVASCULAR: Regular rate and rhythm without murmurs, gallops, or rubs. RESPIRATORY: Breath sounds equal bilaterally. No accessory muscle use. Lungs sounds are clear to auscultation. GASTROINTESTINAL: Abdomen soft and nondistended. Patient has diffuse tenderness throughout. MUSCULOSKELETAL: No cyanosis, or edema. BACK: Nontender without obvious deformity. No CVA tenderness. Data Data Last Documented VS Vital Signs Date Time Temp Pulse Resp B/P (MAP) Pulse Ox O2 Delivery O2 Flow Rate FiO2 03/12/17 18:48 73 16 146/65 (92) 97 Room Air 03/12/17 16:39 97.7 Orders Orders Electrocardiogram (03/12/17 17:10) Complete Blood Count With Diff (03/12/17 17:10) Comprehensive Metabolic Panel (03/12/17 17:10) Magnesium (Mg) (03/12/17 17:10) Ckmb (Isoenzyme) Profile (03/12/17 17:10) Troponin I (03/12/17 17:10) Act Partial Throm Time (Ptt) (03/12/17 17:10) Prothrombin Time / Inr (Pt) (03/12/17 17:10) Urinalysis - C+S If Indicated (03/12/17 17:10) Chest, Single Ap (03/12/17 17:10) Ct Brain W/O Iv Contrast(Rout) (03/12/17 17:10) Ecg Monitoring (03/12/17 17:10) Iv Access Insert/Monitor (03/12/17 17:10) Oximetry (03/12/17 17:10) Ondansetron Inj (Zofran Inj) (03/12/17 17:15) Sodium Chloride 0.9% Flush (Ns Flush) (03/12/17 17:15) Lipase (03/12/17 17:10) Sodium Chlorid 0.9% 500 Ml Inj (Ns 500 M (03/12/17 17:15) Ct Abd/Pel W Iv Contrast(Rout) (03/12/17 ) Cath For Specimen (03/12/17 17:13) Iohexol 350 Inj (Omnipaque 350 Inj) (03/12/17 18:12) Sodium Chlorid 0.9% 500 Ml Inj (Ns 500 M (03/12/17 18:30) Admit Order (Ed Use Only) (03/12/17 19:43) Labs Laboratory Tests Test 03/12/17 17:30 03/12/17 18:45 White Blood Count 15.7 TH/MM3 Red Blood Count 4.10 MIL/MM3 Hemoglobin 12.6 GM/DL Hematocrit 39.2 % Mean Corpuscular Volume 95.6 FL Mean Corpuscular Hemoglobin 30.7 PG Mean Corpuscular Hemoglobin Concent 32.1 % Red Cell Distribution Width 14.2 % Platelet Count 194 TH/MM3 Mean Platelet Volume 10.8 FL Neutrophils (%) (Auto) 89.5 % Lymphocytes (%) (Auto) 2.5 % Monocytes (%) (Auto) 7.5 % Eosinophils (%) (Auto) 0.3 % Basophils (%) (Auto) 0.2 % Neutrophils # (Auto) 14.1 TH/MM3 Lymphocytes # (Auto) 0.4 TH/MM3 Monocytes # (Auto) 1.2 TH/MM3 Eosinophils # (Auto) 0.0 TH/MM3 Basophils # (Auto) 0.0 TH/MM3 CBC Comment DIFF FINAL Differential Comment Blood Urea Nitrogen 23 MG/DL Creatinine 1.74 MG/DL Random Glucose 173 MG/DL Total Protein 6.9 GM/DL Albumin 3.8 GM/DL Calcium Level 10.3 MG/DL Magnesium Level 1.6 MG/DL Alkaline Phosphatase 47 U/L Aspartate Amino Transf (AST/SGOT) 23 U/L Alanine Aminotransferase (ALT/SGPT) 16 U/L Total Bilirubin 1.2 MG/DL Sodium Level 132 MEQ/L Potassium Level 4.2 MEQ/L Chloride Level 101 MEQ/L Carbon Dioxide Level 15.3 MEQ/L Anion Gap 16 MEQ/L Estimat Glomerular Filtration Rate 28 ML/MIN Total Creatine Kinase 39 U/L Troponin I LESS THAN 0.02 NG/ML Lipase 135 U/L Prothrombin Time 12.0 SEC Prothromb Time International Ratio 1.1 RATIO Activated Partial Thromboplast Time 26.0 SEC Urine Color ORANGE Urine Turbidity CLEAR Urine pH 6.0 Urine Specific [place] 1.042 Urine Protein TRACE mg/dL Urine Glucose (UA) NEG mg/dL Urine Ketones 40 mg/dL Urine Occult Blood NEG Urine Nitrite NEG Urine Bilirubin NEG Urine Urobilinogen LESS THAN 2.0 MG/DL Urine Leukocyte Esterase NEG Urine RBC 1 /hpf Urine WBC 4 /hpf Urine Squamous Epithelial Cells <1 /hpf Urine Hyaline Casts 37 /lpf Urine Mucus FEW /lpf Microscopic Urinalysis Comment CULT NOT INDICATED MDM Medical Decision Making Medical Screen Exam Complete: Yes Emergency Medical Condition: Yes Medical Record Reviewed: Yes Interpretation(s) chest x-ray - CONCLUSION: 1. No acute cardiopulmonary disease. CT brain - CONCLUSION: No acute intracranial abnormality demonstrated. Atrophy and chronic white matter changes are again noted. CT abdomen/pelvis - CONCLUSION: 1. Limited examination due to motion artifact particularly the upper abdomen. 2. No definitive CT findings to explain patient's abdominal pain. 3. Mild to moderate sigmoid diverticulosis without significant inflammatory change to suggest diverticulitis. 4. Additional ancillary findings, as above. Differential Diagnosis Electrolyte abnormality versus intracranial normality versus UTI versus diverticulitis versus pancreatitis versus dehydration Narrative Course 87-year-old female presents to the emergency department for evaluation of syncopal episode after she was discharged today. She has also had multiple episodes of vomiting and bowel movement. The patient states she is not feeling complains of dizziness and abdominal pain. EKG, CBC, CMP, magnesium, CK, troponin, lipase, PTT, PTT/INR, UA are ordered and pending. Chest x-ray, CT of the brain, CT abdomen/pelvis with IV contrast are ordered and pending. She is given normal saline 500 mg, Zofran 4 mg IV. EKG shows SR, HR 67, prolonged QT interval, no acute ST changes. CBC shows leukocytosis of 15.7. CMP shows an anion gap of 16, BUN 23, creatinine 1.74, glucose 173, bilirubin 1.2. Lipase is 135. Magnesium is 1.6. CK is 39. Troponin is less than 0.02. Coags show no acute abnormality. UA shows 40 ketones, no acute infection. Chest x-ray shows no acute cardiopulmonary disease. CT of the brain shows no acute intracranial abnormality demonstrated. Atrophy and chronic white matter changes are again noted. CT abdomen/pelvis shows limited examination due to motion artifact particularly the upper abdomen ; no definitive CT findings to explain patient's abdominal pain; mild to moderate sigmoid diverticulosis without significant inflammatory change to suggest diverticulitis; additional ancillary findings, as above. . Patient is given 2nd 500 ml NS bolus. [facility] is paged for admission. Dr. Khan accepted admission. Diagnosis Primary Impression: Syncope Qualified Codes: R55 - Syncope and collapse Additional Impressions: Acute kidney injury Dehydration Admitting Information Admitting Physician Requests: Admit Anne-Marie Stern Mar 12, 2017 17:19
[2017-03-12 17:40] LABS: AUTOMATED NEUTROPHIL # 14.1 TH/MM3 (1.8-7.7); BASOPHIL % 0.2 % (0.0-2.0); EOSINOPHIL % 0.3 % (0.0-4.0); HEMATOCRIT 39.2 % (35.0-46.0); HEMO FLAGS DIFF FINAL; LYMPH % 2.5 % (9.0-44.0); LYMPHOCYTE # 0.4 TH/MM3 (1.0-4.8); MEAN CELL VOLUME 95.6 FL (80.0-100.0); MEAN CORPUSCULAR HEMOGLOBIN 30.7 PG (27.0-34.0); MEAN CORPUSCULAR HGB CONC 32.1 % (32.0-36.0); MONO % 7.5 % (0.0-8.0); NEUT % 89.5 % (16.0-70.0); PLATELET COUNT 194 TH/MM3 (150-450); RED CELL DISTRIBUTION WIDTH 14.2 % (11.6-17.2); WHITE BLOOD COUNT 15.7 TH/MM3 (4.0-11.0)
--- NOTE | 2017-03-12 17:44 | RADRPT ---
EXAM DATE/TIME: 03/12/2017 17:19 [facility] COMPARISON: CHEST SINGLE AP, March 10, 2017, 0:59. INDICATIONS : Syncope. Weakness. MEDICAL HISTORY : None. SURGICAL HISTORY : None. ENCOUNTER: Initial ACUITY: 1 day PAIN SCORE: 6/10 LOCATION: Bilateral chest FINDINGS: A single view of the chest demonstrates the lungs to be symmetrically aerated without evidence of mas s, infiltrate or effusion. The cardiomediastinal contours are unremarkable. Remainder of exam is unc hanged. CONCLUSION: 1. No acute cardiopulmonary disease. Ha Mcbride MD on March 12, 2017 at 17:42 Board Certified Radiologist. This report was verified electronically.
[2017-03-12 18:07] LABS: ANION GAP 16 MEQ/L (5-15); AST (GOT) 23 U/L (15-37); BICARBONATE 15.3 MEQ/L (21.0-32.0); BLOOD UREA NITROGEN 23 MG/DL (7-18); CHLORIDE 101 MEQ/L (98-107); GLOMERULAR FILTRATION RATE 28 ML/MIN (>89); MAGNESIUM 1.6 MG/DL (1.5-2.5); POTASSIUM 4.2 MEQ/L (3.5-5.1); SODIUM (NA) 132 MEQ/L (136-145)
[2017-03-12 18:11] LABS: ALT (GPT) 16 U/L (10-53)
[2017-03-12] MEDS ORDERED: IOHEXOL 350 MG/ML 10 ML VIAL (for RAD DIAG) IVCONTRAST ONE (18:12)
[2017-03-12 18:13] LABS: ALKALINE PHOSPHATASE 47 U/L (45-117); TOTAL BILIRUBIN ADULT 1.2 MG/DL (0.2-1.0)
--- NOTE | 2017-03-12 18:17 | RADRPT ---
EXAM DATE/TIME: 03/12/2017 18:06 [facility] COMPARISON: CT BRAIN W/O CONTRAST, March 10, 2017, 0:43. INDICATIONS : Syncopal episode. RADIATION DOSE: 37.10 CTDIvol (mGy) MEDICAL HISTORY : UTI's SURGICAL HISTORY : Hysterectomy. Bowel surgery ENCOUNTER: Initial ACUITY: 1 day PAIN SCALE: 0/10 LOCATION: cranial TECHNIQUE: Multiple contiguous axial images were obtained of the head. Using automated exposure control and adj ustment of the mA and/or kV according to patient size, radiation dose was kept as low as reasonably a chievable to obtain optimal diagnostic quality images. DICOM format image data is available electro nically for review and comparison. FINDINGS: CEREBRUM: The ventricles are normal for age. No evidence of midline shift, mass lesion, hemorrhage or acute in farction. No extra-axial fluid collections are seen. Chronic low attenuation again seen in the periv entricular white matter. POSTERIOR FOSSA: The cerebellum and brainstem are intact. The 4th ventricle is midline. The cerebellopontine angle i s unremarkable. EXTRACRANIAL: The visualized portion of the orbits is intact. SKULL: The calvaria is intact. No evidence of skull fracture. CONCLUSION: No acute intracranial abnormality demonstrated. Atrophy and chronic white matter changes are again no lady. Jadiel Doan MD on March 12, 2017 at 18:14 Board Certified Radiologist. This report was verified electronically.
[2017-03-12 18:22] LABS: CREATINE KINASE 39 U/L (26-192)
--- NOTE | 2017-03-12 18:29 | RADRPT ---
EXAM DATE/TIME: 03/12/2017 18:11 [facility] COMPARISON: No previous studies available for comparison. INDICATIONS : Abdomen pain. IV CONTRAST: 75 cc Omnipaque 350 (iohexol) IV ORAL CONTRAST: No oral contrast ingested. RADIATION DOSE: 4.55 CTDIvol (mGy) MEDICAL HISTORY : UTI's SURGICAL HISTORY : Hysterectomy. bowel surgery ENCOUNTER: Initial ACUITY: 1 day PAIN SCALE: 3/10 LOCATION: Bilateral abdomen TECHNIQUE: Volumetric scanning of the abdomen and pelvis was performed. Using automated exposure control and ad justment of the mA and/or kV according to patient size, radiation dose was kept as low as reasonably achievable to obtain optimal diagnostic quality images. DICOM format image data is available electro nically for review and comparison. FINDINGS: Evaluation is limited by motion artifact, particularly in the upper abdomen. LOWER LUNGS: The visualized lower lungs are clear. LIVER: There is a subcentimeter hypodense lesion in segment 4 of the liver which is too small to fully suman cterize. Liver is otherwise grossly unremarkable without significant intrahepatic ductal dilatation. Gallbladder is grossly unremarkable by CT. SPLEEN: Normal size without lesion. PANCREAS: Pancreas is fatty replaced but otherwise grossly unremarkable by CT. KIDNEYS: Small rounded calcification near the inferior pole of the left kidney with associated cortical scarri ng may reflect sequela of prior hematoma or involuted cyst. Kidneys are otherwise symmetrical in size and demonstrate symmetric enhancement. There is no mass, stone or hydronephrosis. ADRENAL GLANDS: Within normal limits. VASCULAR: There is no aortic aneurysm. BOWEL/MESENTERY: Mild to moderate sigmoid diverticulosis without significant inflammatory change. Bowel loops are norm al in caliber without evidence for obstruction. No pneumatosis or free air. No significant free fluid or drainable fluid collection. ABDOMINAL WALL: Within normal limits. RETROPERITONEUM: There is no lymphadenopathy. BLADDER: No wall thickening or mass. REPRODUCTIVE: Uterus is surgically absent. INGUINAL: There is no lymphadenopathy or hernia. MUSCULOSKELETAL: Multilevel degenerative spondylosis of the lumbar spine. Hemangioma at L1. No abnormal focal lytic or blastic bony lesions. CONCLUSION: 1. Limited examination due to motion artifact particularly the upper abdomen. 2. No definitive CT findings to explain patient's abdominal pain. 3. Mild to moderate sigmoid diverticulosis without significant inflammatory change to suggest diverti culitis. 4. Additional ancillary findings, as above. Ha Mcbride MD on March 12, 2017 at 18:20 Board Certified Radiologist. This report was verified electronically.
[2017-03-12 18:48] VITALS: BP 146/65; PULSE 73; RESP 16; O2SAT 97
[2017-03-12 18:56] LABS: BLOOD, URINE NEG (NEG); COMMENT (UR) CULT NOT INDICATED; CULTURE IF INDICATED CULT NOT INDICATED; GLUCOSE,URINE NEG (NEG); HYALINE CAST, URINE 37 /lpf (RARE); KETONE, URINE 40 mg/dL (NEG); MUCUS URINE FEW /lpf (OCC); NITRITE,URINE NEG (NEG); SQUAMOUS EPITHELIAL CELL URINE <1 /hpf (0-5)
[2017-03-12 18:57] LABS: URINE COLOR ORANGE (YELLW/STRAW)
[2017-03-12 19:05] VITALS: BP 122/60; PULSE 76; RESP 18; O2SAT 96
[2017-03-12 19:06] LABS: INTERNATIONAL NORMALIZED RATIO 1.1 RATIO
--- NOTE | 2017-03-12 20:09 | HHI.HP ---
HPI Service [facility] Primary Care Physician Edwige Murdock MD Admission Diagnosis syncope, GALLO, dehydration Diagnoses: (1) Syncope Diagnosis: Principal (2) GALLO (acute kidney injury) Diagnosis: Principal (3) UTI (urinary tract infection) Diagnosis: Principal (4) Dementia Diagnosis: Principal Travel History International Travel<30 Days: No Contact w/Intl Traveler <30 Da: No Traveled to Known Affected Are: No History of Present Illness This is an 87-year-old female with a PMH of Anxiety, HTN, Hyperlipidemia, Dementia and Arthritis was brought to the ER by EMS secondary to syncopal event. Patient was recently admitted 03/10-03/12/17 for Acute Encephalopathy and UTI, s/p IV Abx, d/c'd home on 03/12/17, per Son pt was at baseline at the time of discharge, however once home pt had syncopal event lasting approx 10min. No head trauma as he was able to catch her before she hit the ground. Did have few episodes of vomiting and diarrhea after waking. On arrival, BP 160/70, HR 89, O2 sat 96% on RA Afebrile. W WBC 15.7, previously normal on 03/11/17. Creatinine 1.74, produces 0.61 on 03/11/17. Troponin negative. INR 1.1. UA negative, however UA 03/10/17 positive for UTI. Urine Culture 03/10/17 +[address] CT Head with no acute findings. CXR negative. Review of Systems Except as stated in HPI: all other systems reviewed are Neg ROS: 14 point review of systems otherwise negative. Past Family Social History Past Medical History PMH: Anxiety, HTN, Hyperlipidemia, Dementia and Arthritis Past Surgical History PAST SURGICAL HISTORY: Appendectomy, Hysterectomy, Jaw Wired Allergies: Coded Allergies: No Known Allergies (Verified , 03/12/17) Family History PAST FAMILY HISTORY: Reviewed. No h/o DM or CAD Social History PAST SOCIAL HISTORY: Negative for alcohol, tobacco or drugs. Physical Exam Vital Signs Vital Signs Date Time Temp Pulse Resp B/P (MAP) Pulse Ox O2 Delivery O2 Flow Rate FiO2 03/12/17 18:48 73 16 146/65 (92) 97 Room Air 03/12/17 17:00 76 16 160/70 (100) 100 Room Air 03/12/17 16:39 97.7 89 17 128/69 (88) 96 Physical Exam PE: GENERAL: Pleasant thin elderly white female in no acute distress. HEENT: PERRLA, EOMI. No scleral icterus or conjunctival pallor. No lid lag or facial droop. CARDIOVASCULAR: Regular rate and rhythm. No obvious murmurs to auscultation. No chest tenderness to palpation. RESPIRATORY: No obvious rhonchi or wheezing. Clear to auscultation. Breath sounds equal bilaterally. GASTROINTESTINAL: Abdomen soft, non-tender, nondistended. BS normal. MUSCULOSKELETAL: Extremities without clubbing, cyanosis, or edema. No obvious deformities. NEUROLOGICAL: Awake, alert. No focal neurologic deficits. Moving both upper and lower extremities spontaneously. Laboratory Laboratory Tests Test 03/12/17 17:30 03/12/17 18:45 White Blood Count 15.7 Red Blood Count 4.10 Hemoglobin 12.6 Hematocrit 39.2 Mean Corpuscular Volume 95.6 Mean Corpuscular Hemoglobin 30.7 Mean Corpuscular Hemoglobin Concent 32.1 Red Cell Distribution Width 14.2 Platelet Count 194 Mean Platelet Volume 10.8 Neutrophils (%) (Auto) 89.5 Lymphocytes (%) (Auto) 2.5 Monocytes (%) (Auto) 7.5 Eosinophils (%) (Auto) 0.3 Basophils (%) (Auto) 0.2 Neutrophils # (Auto) 14.1 Lymphocytes # (Auto) 0.4 Monocytes # (Auto) 1.2 Eosinophils # (Auto) 0.0 Basophils # (Auto) 0.0 CBC Comment DIFF FINAL Differential Comment Blood Urea Nitrogen 23 Creatinine 1.74 Random Glucose 173 Total Protein 6.9 Albumin 3.8 Calcium Level 10.3 Magnesium Level 1.6 Alkaline Phosphatase 47 Aspartate Amino Transf (AST/SGOT) 23 Alanine Aminotransferase (ALT/SGPT) 16 Total Bilirubin 1.2 Sodium Level 132 Potassium Level 4.2 Chloride Level 101 Carbon Dioxide Level 15.3 Anion Gap 16 Estimat Glomerular Filtration Rate 28 Total Creatine Kinase 39 Troponin I LESS THAN 0.02 Lipase 135 Prothrombin Time 12.0 Prothromb Time International Ratio 1.1 Activated Partial Thromboplast Time 26.0 Urine Color ORANGE Urine Turbidity CLEAR Urine pH 6.0 Urine Specific [place] 1.042 Urine Protein TRACE Urine Glucose (UA) NEG Urine Ketones 40 Urine Occult Blood NEG Urine Nitrite NEG Urine Bilirubin NEG Urine Urobilinogen LESS THAN 2.0 Urine Leukocyte Esterase NEG Urine RBC 1 Urine WBC 4 Urine Squamous Epithelial Cells <1 Urine Hyaline Casts 37 Urine Mucus FEW Microscopic Urinalysis Comment CULT NOT INDICATED Result Diagram: 03/12/17172903/12/171729 Caprini VTE Risk Assessment Caprini VTE Risk Assessment: No/Low Risk (score <= 1) Caprini Risk Assessment Model Point Value = 1 Point Value = 2 Point Value = 3 Point Value = 5 Age 41-60 Minor surgery BMI > 25 kg/m2 Swollen legs Varicose veins or History of unexplained or recurrent spontaneous Oral contraceptives or hormone replacement Sepsis (< 1 month) Serious lung disease, including pneumonia (< 1 month) Abnormal pulmonary function Acute myocardial infarction Congestive heart failure (< 1 month) History of inflammatory bowel disease Medical patient at bed rest Age 61-74 Arthroscopic surgery Major open surgery (> 45 min) Laparoscopic surgery (> 45 min) Malignancy Confined to bed (> 72 hours) Immobilizing plaster cast Central venous access Age >= 75 History of VTE Family history of VTE Factor V Leiden Prothrombin [id number] Lupus anticoagulant Anticardiolipin antibodies Elevated serum homocysteine Heparin-induced thrombocytopenia Other congenital or acquired thrombophilia Stroke (< 1 month) Elective arthroplasty Hip, pelvis, or leg fracture Acute spinal cord injury (< 1 month) Prophylaxis Regimen Total Risk Factor Score Risk Level Prophylaxis Regimen 0-1 Low Early ambulation 2 Moderate Order ONE of the following: *Sequential Compression Device (SCD) *Heparin 5000 units SQ BID 3-4 Higher Order ONE of the following medications: *Heparin 5000 units SQ TID *Enoxaparin/Lovenox 40 mg SQ daily (WT < 150 kg, CrCl > 30 mL/min) *Enoxaparin/Lovenox 30 mg SQ daily (WT < 150 kg, CrCl > 10-29 mL/min) *Enoxaparin/Lovenox 30 mg SQ BID (WT < 150 kg, CrCl > 30 mL/min) AND/OR *Sequential Compression Device (SCD) 5 or more Highest Order ONE of the following medications: *Heparin 5000 units SQ TID (Preferred with Epidurals) *Enoxaparin/Lovenox 40 mg SQ daily (WT < 150 kg, CrCl > 30 mL/min) *Enoxaparin/Lovenox 30 mg SQ daily (WT < 150 kg, CrCl > 10-29 mL/min) *Enoxaparin/Lovenox 30 mg SQ BID (WT < 150 kg, CrCl > 30 mL/min) AND *Sequential Compression Device (SCD) Assessment and Plan Problem List: (1) Syncope ICD Code: R55 - Syncope and collapse Status: Acute (2) GALLO (acute kidney injury) ICD Code: N17.9 - Acute kidney failure, unspecified (3) UTI (urinary tract infection) ICD Code: N39.0 - Urinary tract infection, site not specified (4) Dementia ICD Code: F03.90 - Unspecified dementia without behavioral disturbance Status: Chronic Assessment and Plan A/P: 1. Syncope: likely secondary to significant dehydration. CT Head w/ no acute findings, images reviewed by me. Trop negative. Telemetry, IVF for hydration. 2. GALLO: Secondary to dehydration. Creatinine 1.74, produces 0.61 on 03/11/17. Recent admit 03/10/17 for UTI, multiple episodes of vomiting and diarrhea following the syncopal event, IVF for hydration, repeat labs in a.m. 3. UTI: As above, recent admit 03/10/17 for UTI, UA today negative, however on recent antibiotics. Urine Culture +Proteus from 03/10/17. Will continue w/ IV Rocephin. 4. Dementia: At baseline. Resume home medications. 5. DVT Prophylaxis: SCD/[place]. 6. Social work for d/c planning as needed. 7. Case discussed at length w/ ER physician. Physician Certification 2 Midnight Certification Type: Admission for Inpatient Services Order for Inpatient Services The services are ordered in accordance with Medicare regulations or non- Medicare payer requirements, as applicable. In the case of services not specified as inpatient-only, they are appropriately provided as inpatient services in accordance with the 2-midnight benchmark. Estimated LOS (days): 2 days is the estimated time the patient will need to remain in the hospital, assuming treatment plan goals are met and no additional complications. Post-Hospital Plan: Not yet determined Problem Qualifiers (1) Syncope: Qualified Codes: R55 - Syncope and collapse Lucy Khan MD Mar 12, 2017 20:09
[2017-03-12] MEDS ORDERED: ACETAMINOPHEN 325 MG TAB PO PRN (20:15)
[2017-03-12] MEDS ORDERED: LACTULOSE SYRUP 20 GM/30 ML CUP PO PRN (20:15)
[2017-03-12] MEDS ORDERED: SODIUM CHLORIDE 0.9% FLUSH 10 ML FLUSH IV FLUSH PRN (20:15)
[2017-03-12] MEDS ORDERED: ACETAMINOPHEN/HYDROcodone 325 MG/10 MG TAB PO PRN (20:15)
[2017-03-12] MEDS ORDERED: MAGNESIUM HYDROXIDE SUSP 30 ML CUP PO PRN (20:15)
[2017-03-12] MEDS ORDERED: BISACODYL 10 MG SUPP RECTAL PRN (20:15)
[2017-03-12] MEDS ORDERED: ACETAMINOPHEN/HYDROcodone 325 MG/5 MG TAB PO PRN (20:15)
[2017-03-12] MEDS ORDERED: SENNOSIDES 8.6 MG TAB PO PRN (20:15)
[2017-03-12] MEDS: cefTRIAXone INJ 1,000 MG in SODIUM CHLORIDE 0.9% INJ 100 ML IV SCH (20:52)
[2017-03-12] MEDS: SODIUM CHLOR 0.9% 1000 ML INJ 1,000 ML IV SCH (20:52)
[2017-03-12] MEDS: DOCUSATE SODIUM 50 MG/SENNA 8.6 MG TAB PO SCH (20:52)
[2017-03-12] MEDS: AMOXICILLIN/CLAVULANATE K 875 MG TAB PO SCH (20:52)
[2017-03-12] MEDS: SODIUM CHLORIDE 0.9% FLUSH 10 ML FLUSH IV FLUSH SCH (20:52)
[2017-03-12 21:02] VITALS: BP 124/58; PULSE 71; RESP 18; O2SAT 97
[2017-03-12] MEDS: DONEPEZIL HCL 5 MG TAB PO SCH (21:23)
[2017-03-12] MEDS: MEMANTINE HCL 10 MG TAB PO SCH (21:23)
[2017-03-12] MEDS: ESTRADIOL 0.1 MG/GM VAG CREAM 42.5 GM VAGINAL SCH (21:23)
--- NOTE | 2017-03-12 21:46 | EKG ---
Date Performed: 03/12/2017 Time Performed: 17:58:59 PTAGE: 87 years EKG: Sinus rhythm POSSIBLE PROLONGED QT INTERVAL ABNORMAL ECG PREVIOUS TRACING : 03/12/2017 17.42 No significant change from previous tracing noted. DOCTOR: Martinez Willis Interpretating Date/Time 03/12/2017 21:44:09
[2017-03-13 00:41] VITALS: BP 105/52; PULSE 75; RESP 16; TEMP 97.2; O2SAT 97
[2017-03-13 04:36] VITALS: BP 105/53; PULSE 69; RESP 16; TEMP 97.7; O2SAT 96
[2017-03-13] MEDS: SODIUM CHLOR 0.9% 1000 ML INJ 1,000 ML IV SCH ×3 (06:06→20:53)
[2017-03-13 08:00] VITALS: BP 118/79; PULSE 65; RESP 17; TEMP 97.8; O2SAT 97
[2017-03-13 08:05] LABS: AUTOMATED NEUTROPHIL # 9.6 TH/MM3 (1.8-7.7); BASOPHIL % 0.2 % (0.0-2.0); EOSINOPHIL % 0.3 % (0.0-4.0); HEMATOCRIT 30.6 % (35.0-46.0); HEMO FLAGS DIFF FINAL; LYMPH % 7.3 % (9.0-44.0); LYMPHOCYTE # 0.8 TH/MM3 (1.0-4.8); MEAN CELL VOLUME 94.6 FL (80.0-100.0); MEAN CORPUSCULAR HEMOGLOBIN 31.3 PG (27.0-34.0); MEAN CORPUSCULAR HGB CONC 33.1 % (32.0-36.0); MONO % 8.7 % (0.0-8.0); NEUT % 83.5 % (16.0-70.0); PLATELET COUNT 138 TH/MM3 (150-450); RED BLOOD COUNT 3.23 MIL/MM3 (4.00-5.30); RED CELL DISTRIBUTION WIDTH 14.3 % (11.6-17.2); WHITE BLOOD COUNT 11.5 TH/MM3 (4.0-11.0)
[2017-03-13 08:32] LABS: ALKALINE PHOSPHATASE 33 U/L (45-117); ALT (GPT) 13 U/L (10-53); ANION GAP 7 MEQ/L (5-15); AST (GOT) 15 U/L (15-37); BICARBONATE 22.3 MEQ/L (21.0-32.0); BLOOD UREA NITROGEN 24 MG/DL (7-18); CHLORIDE 109 MEQ/L (98-107); GLOMERULAR FILTRATION RATE 50 ML/MIN (>89); POTASSIUM 3.8 MEQ/L (3.5-5.1); SODIUM (NA) 138 MEQ/L (136-145); TOTAL BILIRUBIN ADULT 0.5 MG/DL (0.2-1.0)
[2017-03-13] MEDS: SUCRALFATE 1 GM TAB PO SCH (09:00)
[2017-03-13] MEDS: SODIUM CHLORIDE 0.9% FLUSH 10 ML FLUSH IV FLUSH SCH ×2 (09:00→20:51)
[2017-03-13] MEDS: DOCUSATE SODIUM 50 MG/SENNA 8.6 MG TAB PO SCH ×2 (09:00→20:51)
[2017-03-13] MEDS: AMOXICILLIN/CLAVULANATE K 875 MG TAB PO SCH ×2 (10:18→20:50)
[2017-03-13] MEDS: MEMANTINE HCL 10 MG TAB PO SCH ×2 (10:18→20:51)
[2017-03-13] MEDS: CITALOPRAM HYDROBROMIDE 40 MG TAB PO SCH (10:19)
[2017-03-13 12:00] VITALS: BP 112/67; PULSE 60; RESP 18; TEMP 97.1; O2SAT 98
--- NOTE | 2017-03-13 12:36 | HHI.PR ---
Subjective Remarks resting comfortably with no distress. no fever. denies pain. d/w the RN and no acute issues over night. Objective Vitals Vital Signs Date Time Temp Pulse Resp B/P (MAP) Pulse Ox O2 Delivery O2 Flow Rate FiO2 03/13/17 08:00 97.8 65 17 118/79 (92) 97 03/13/17 04:36 97.7 69 16 105/53 (70) 96 03/13/17 00:41 97.2 75 16 105/52 (69) 97 03/12/17 22:18 03/12/17 21:02 71 18 124/58 (80) 97 Room Air 03/12/17 19:05 Room Air 03/12/17 19:05 76 18 122/60 (80) 96 Room Air 03/12/17 18:48 73 16 146/65 (92) 97 Room Air 03/12/17 17:00 76 16 160/70 (100) 100 Room Air 03/12/17 16:39 97.7 89 17 128/69 (88) 96 I/O 03/12/17 03/12/17 03/12/17 03/13/17 03/13/17 03/13/17 07:00 15:00 23:00 07:00 15:00 23:00 Intake Total 1240 ml 240 ml Balance 1240 ml 240 ml Intake Oral 240 ml 240 ml IV Total 1000 ml # Voids 1 3 # Bowel Movements 0 2 Result Diagram: 03/13/17 0720 03/13/17 0720 Imaging Last Impressions Head CT 03/12/17 1710 Signed Impressions: Service Date/Time: Sunday, March 12, 2017 18:06 - CONCLUSION: No acute intracranial abnormality demonstrated. Atrophy and chronic white matter changes are again noted. Jadiel Doan MD Chest X-Ray 03/12/17 1710 Signed Impressions: Service Date/Time: Sunday, March 12, 2017 17:19 - CONCLUSION: 1. No acute cardiopulmonary disease. Ha Mcbride MD Abdomen/Pelvis CT 03/12/17 0000 Signed Impressions: Service Date/Time: Sunday, March 12, 2017 18:11 - CONCLUSION: 1. Limited examination due to motion artifact particularly the upper abdomen. 2. No definitive CT findings to explain patient's abdominal pain. 3. Mild to moderate sigmoid diverticulosis without significant inflammatory change to suggest diverticulitis. 4. Additional ancillary findings, as above. Ha Mcbride MD Objective Remarks GENERAL: This is a well-nourished, well-developed patient, in no apparent distress. CARDIOVASCULAR: Regular rate and regular rhythm without murmurs, gallops, or rubs. RESPIRATORY: Clear to auscultation. Breath sounds equal bilaterally. No wheezes , rales, or rhonchi. GASTROINTESTINAL: Abdomen soft, non-tender, nondistended. Normal, active bowel sounds MUSCULOSKELETAL: Extremities without clubbing, cyanosis, or edema. NEURO: awake and alert- oriented to person and place. Medications and IVs Current Medications Ondansetron HCl (Zofran Inj) 4 mg ONCE ONCE IVP Last administered on 17:35; Start 03/12/17 at 17:15; Stop 03/12/17 at 17:16; Status DC Sodium Chloride (NS Flush) 2 ml UNSCH PRN IVF FLUSH AFTER USING IV ACCESS; Start 03/12/17 at 17:15; Stop 03/12/17 at 20:12; Status DC Sodium Chloride 500 ml @ 500 mls/hr BOLUS ONCE IV Last administered on 17:34; Start 03/12/17 at 17:15; Stop 03/12/17 at 18:14; Status DC Iohexol (Omnipaque 350 Inj) 75 ml STK-MED ONCE IVCONTRAST Last administered on 03/12/17 18:12; Start 03/12/17 at 18:12; Stop 03/12/17 at 18:13; Status DC Sodium Chloride 500 ml @ 500 mls/hr BOLUS ONCE IV Last administered on 18:48; Start 03/12/17 at 18:30; Stop 03/12/17 at 19:29; Status DC Ceftriaxone Sodium 1000 mg/ Sodium Chloride 100 ml @ 200 mls/hr Q24H IV Last administered on 03/12/17 20:52; Start 03/12/17 at 21:00 Sodium Chloride 1,000 ml @ 100 mls/hr Q10H IV Last administered on 03/12/17 20:52; Start 03/12/17 at 20:06 Sodium Chloride (NS Flush) 2 ml UNSCH PRN IV FLUSH FLUSH AFTER USING IV ACCESS ; Start 03/12/17 at 20:15 Sodium Chloride (NS Flush) 2 ml BID IV FLUSH Last administered on 03/12/17 20: 52; Start 03/12/17 at 21:00 Ondansetron HCl (Zofran Inj) 4 mg Q6H PRN IVP NAUSEA OR VOMITING; Start at 20:15 Acetaminophen (Tylenol) 650 mg Q6H PRN PO FEVER/PAIN SCALE 1 TO 2; Start at 20:15 Acetaminophen/ Hydrocodone Bitart ([place] 5-325 Mg) 1 tab Q4H PRN PO PAIN SCALE 3 TO 5; Start 03/12/17 at 20:15 Acetaminophen/ Hydrocodone Bitart ([place] 10-325 Mg) 1 tab Q4H PRN PO PAIN SCALE 6 TO 10; Start 03/12/17 at 20:15 Senna/Docusate Sodium ([place]ocelynn-Colace) 1 tab BID PO ; Start 03/12/17 at 21:00 Magnesium Hydroxide (Milk Of Magnesia Liq) 30 ml Q12H PRN PO MILD - MODERATE CONSTIPATION; Start 03/12/17 at 20:15 Sennosides (Senokot) 17.2 mg Q12H PRN PO MODERATE - SEVERE CONSTIPATION; Start 03/12/17 at 20:15 Bisacodyl (Dulcolax Supp) 10 mg DAILY PRN RECTAL SEVERE CONSITIPATION; Start at 20:15 Lactulose (Lactulose Liq) 30 ml DAILY PRN PO SEVERE CONSITIPATION; Start at 20:15 Alprazolam (Xanax) 0.25 mg Q4H PRN PO ANXIETY; Start 03/12/17 at 20:15 Amoxicillin/ Clavulanate Potassium (Augmentin) 875 mg Q12HR PO Last administered on 03/13/17 10:18; Start 03/12/17 at 21:00 Citalopram Hydrobromide (CeleXA) 40 mg DAILY PO Last administered on 03/13/17 10:19; Start 03/13/17 at 09:00 Donepezil HCl (Aricept) 10 mg HS PO Last administered on 03/12/17 21:23; Start 03/12/17 at 21:00 Estradiol (Estrace 0.01% Vag Cream) 1 appl HS VAGINAL Last administered on 03/12 21:23; Start 03/12/17 at 21:00 Memantine (Namenda) 10 mg BID PO Last administered on 03/13/17t 10:18; Start at 21:00 Sucralfate (Carafate) 1 gm DAILY PO ; Start 03/13/17 at 09:00 A/P Assessment and Plan A/P 1. Syncope: likely secondary to significant dehydration. CT Head w/ no acute findings. Trop negative. Telemetry, IVF for hydration. 2. GALLO: Secondary to dehydration. improving- continue IV fluid- BMP in am. 3. UTI: As above, recent admit 03/10/17 for UTI, UA today negative, however on recent antibiotics. Urine Culture +Proteus from 03/10/17. Will continue w/ IV Rocephin. 4. Dementia: At baseline. Resumed home medications. 5. DVT Prophylaxis: SCD/[place]. consult PT. Jos Erwin MD Mar 13, 2017 12:36
[2017-03-13 16:00] VITALS: BP 150/67; PULSE 72; RESP 18; TEMP 97.5; O2SAT 96
[2017-03-13 20:35] VITALS: BP 141/69; PULSE 69; RESP 16; TEMP 98.4; O2SAT 97
[2017-03-13] MEDS: DONEPEZIL HCL 5 MG TAB PO SCH (20:50)
[2017-03-13] MEDS: cefTRIAXone INJ 1,000 MG in SODIUM CHLORIDE 0.9% INJ 100 ML IV SCH (20:54)
[2017-03-13] MEDS: ESTRADIOL 0.1 MG/GM VAG CREAM 42.5 GM VAGINAL SCH (20:56)
[2017-03-14] MEDS: ONDANSETRON HCL 4 MG/2 ML VIAL IVP PRN (00:02)
[2017-03-14] MEDS: ALPRAZolam 0.25 MG TAB PO PRN (00:05)
[2017-03-14 00:08] VITALS: BP 187/81; PULSE 72; RESP 16; TEMP 97.8; O2SAT 98
[2017-03-14 08:00] VITALS: BP 140/69; PULSE 65; RESP 18; TEMP 96.4; O2SAT 98
[2017-03-14 08:59] LABS: BICARBONATE 21.3 MEQ/L (21.0-32.0); POTASSIUM 3.1 MEQ/L (3.5-5.1)
[2017-03-14] MEDS: SODIUM CHLORIDE 0.9% FLUSH 10 ML FLUSH IV FLUSH SCH ×2 (09:00→20:45)
[2017-03-14] MEDS: DOCUSATE SODIUM 50 MG/SENNA 8.6 MG TAB PO SCH ×2 (09:00→20:45)
[2017-03-14] MEDS: CITALOPRAM HYDROBROMIDE 40 MG TAB PO SCH (09:38)
[2017-03-14] MEDS: AMOXICILLIN/CLAVULANATE K 875 MG TAB PO SCH ×2 (09:38→20:45)
[2017-03-14] MEDS: SODIUM CHLOR 0.9% 1000 ML INJ 1,000 ML IV SCH (09:38)
[2017-03-14] MEDS: MEMANTINE HCL 10 MG TAB PO SCH ×2 (09:38→20:45)
[2017-03-14] MEDS: SUCRALFATE 1 GM TAB PO SCH (09:38)
--- NOTE | 2017-03-14 11:28 | HHI.PR ---
Subjective Remarks in no acute distress. afebrile. denies pain. had some diarrhea last night. d/w the RN. Objective Vitals Vital Signs Date Time Temp Pulse Resp B/P (MAP) Pulse Ox O2 Delivery O2 Flow Rate FiO2 03/14/17 08:00 96.4 65 18 140/69 (92) 98 03/14/17 01:05 Room Air 03/14/17 00:08 97.8 72 16 187/81 (116) 98 03/13/17 20:35 98.4 69 16 141/69 (93) 97 03/13/17 16:00 97.5 72 18 150/67 (94) 96 03/13/17 12:00 97.1 60 18 112/67 (82) 98 I/O 03/13/17 03/13/17 03/13/17 03/14/17 03/14/17 03/14/17 07:00 15:00 23:00 07:00 15:00 23:00 Intake Total 240 ml 360 ml 340 ml 120 ml Balance 240 ml 360 ml 340 ml 120 ml Intake Oral 240 ml 360 ml 240 ml 120 ml IV Total 100 ml # Voids 3 2 7 5 # Bowel Movements 2 1 7 5 Result Diagram: 03/13/17 0720 03/14/17 0711 Imaging Last Impressions Head CT 03/12/17 1710 Signed Impressions: Service Date/Time: Sunday, March 12, 2017 18:06 - CONCLUSION: No acute intracranial abnormality demonstrated. Atrophy and chronic white matter changes are again noted. Jadiel Doan MD Chest X-Ray 03/12/17 1710 Signed Impressions: Service Date/Time: Sunday, March 12, 2017 17:19 - CONCLUSION: 1. No acute cardiopulmonary disease. Ha Mcbride MD Abdomen/Pelvis CT 03/12/17 0000 Signed Impressions: Service Date/Time: Sunday, March 12, 2017 18:11 - CONCLUSION: 1. Limited examination due to motion artifact particularly the upper abdomen. 2. No definitive CT findings to explain patient's abdominal pain. 3. Mild to moderate sigmoid diverticulosis without significant inflammatory change to suggest diverticulitis. 4. Additional ancillary findings, as above. Ha Mcbride MD Objective Remarks GENERAL: This is a well-nourished, well-developed patient, in no apparent distress. CARDIOVASCULAR: Regular rate and regular rhythm without murmurs, gallops, or rubs. RESPIRATORY: Clear to auscultation. Breath sounds equal bilaterally. No wheezes , rales, or rhonchi. GASTROINTESTINAL: Abdomen soft, non-tender, nondistended. Normal, active bowel sounds MUSCULOSKELETAL: Extremities without clubbing, cyanosis, or edema. NEURO: awake and alert- oriented to person and place. Medications and IVs Current Medications Ondansetron HCl (Zofran Inj) 4 mg ONCE ONCE IVP Last administered on 17:35; Start 03/12/17 at 17:15; Stop 03/12/17 at 17:16; Status DC Sodium Chloride (NS Flush) 2 ml UNSCH PRN IVF FLUSH AFTER USING IV ACCESS; Start 03/12/17 at 17:15; Stop 03/12/17 at 20:12; Status DC Sodium Chloride 500 ml @ 500 mls/hr BOLUS ONCE IV Last administered on 17:34; Start 03/12/17 at 17:15; Stop 03/12/17 at 18:14; Status DC Iohexol (Omnipaque 350 Inj) 75 ml STK-MED ONCE IVCONTRAST Last administered on 03/12/17 18:12; Start 03/12/17 at 18:12; Stop 03/12/17 at 18:13; Status DC Sodium Chloride 500 ml @ 500 mls/hr BOLUS ONCE IV Last administered on 18:48; Start 03/12/17 at 18:30; Stop 03/12/17 at 19:29; Status DC Ceftriaxone Sodium 1000 mg/ Sodium Chloride 100 ml @ 200 mls/hr Q24H IV Last administered on 03/13/17 20:54; Start 03/12/17 at 21:00 Sodium Chloride 1,000 ml @ 60 mls/hr [id number] IV Last administered on 09:38; Start 03/12/17 at 20:06 Sodium Chloride (NS Flush) 2 ml UNSCH PRN IV FLUSH FLUSH AFTER USING IV ACCESS ; Start 03/12/17 at 20:15 Sodium Chloride (NS Flush) 2 ml BID IV FLUSH Last administered on 03/12/17 20: 52; Start 03/12/17 at 21:00 Ondansetron HCl (Zofran Inj) 4 mg Q6H PRN IVP NAUSEA OR VOMITING Last administered on 03/14/17 00:02; Start 03/12/17 at 20:15 Acetaminophen (Tylenol) 650 mg Q6H PRN PO FEVER/PAIN SCALE 1 TO 2; Start at 20:15 Acetaminophen/ Hydrocodone Bitart ([place] 5-325 Mg) 1 tab Q4H PRN PO PAIN SCALE 3 TO 5; Start 03/12/17 at 20:15 Acetaminophen/ Hydrocodone Bitart ([place] 10-325 Mg) 1 tab Q4H PRN PO PAIN SCALE 6 TO 10; Start 03/12/17 at 20:15 Senna/Docusate Sodium (Jocelynn-Colace) 1 tab BID PO Last administered on 20:51; Start 03/12/17 at 21:00 Magnesium Hydroxide (Milk Of Magnesia Liq) 30 ml Q12H PRN PO MILD - MODERATE CONSTIPATION; Start 03/12/17 at 20:15 Sennosides (Senokot) 17.2 mg Q12H PRN PO MODERATE - SEVERE CONSTIPATION; Start 03/12/17 at 20:15 Bisacodyl (Dulcolax Supp) 10 mg DAILY PRN RECTAL SEVERE CONSITIPATION; Start at 20:15 Lactulose (Lactulose Liq) 30 ml DAILY PRN PO SEVERE CONSITIPATION; Start at 20:15 Alprazolam (Xanax) 0.25 mg Q4H PRN PO ANXIETY Last administered on 03/14/17 00 :05; Start 03/12/17 at 20:15 Amoxicillin/ Clavulanate Potassium (Augmentin) 875 mg Q12HR PO Last administered on 03/14/17 09:38; Start 03/12/17 at 21:00 Citalopram Hydrobromide (CeleXA) 40 mg DAILY PO Last administered on 03/14/17 09:38; Start 03/13/17 at 09:00 Donepezil HCl (Aricept) 10 mg HS PO Last administered on 03/13/17 20:50; Start 03/12/17 at 21:00 Estradiol (Estrace 0.01% Vag Cream) 1 appl HS VAGINAL Last administered on 03/13 20:56; Start 03/12/17 at 21:00 Memantine (Namenda) 10 mg BID PO Last administered on 03/14/17 09:38; Start at 21:00 Sucralfate (Carafate) 1 gm DAILY PO Last administered on 03/14/17 09:38; Start 03/13/17 at 09:00 A/P Assessment and Plan A/P 1. Syncope: likely secondary to significant dehydration. CT Head w/ no acute findings. Trop negative. Telemetry, IVF for hydration. 2. GALLO: Secondary to dehydration. improving- continue IV fluid- BMP in am. 3. UTI: As above, recent admit 03/10/17 for UTI, UA today negative, however on recent antibiotics. Urine Culture +Proteus from 03/10/17. Will continue w/ IV Rocephin. 4.diarrhea; check the stool for c-diff- 5. hypokalemia; will replace and monitor 6. Dementia: At baseline. Resumed home medications. 7. DVT Prophylaxis: SCD/[place]. consulted PT. Discharge Planning case management for dc planning to rehab. discharge within the next one-two days if stable. d/w the patient. Jos Erwin MD Mar 14, 2017 11:28
[2017-03-14 12:00] VITALS: BP 139/71; PULSE 67; RESP 18; TEMP 96.7; O2SAT 98
[2017-03-14] MEDS ORDERED: POTASSIUM CHLORIDE 20 MEQ CONTROLLED RELEASE TAB PO ONE ×2 (12:15→16:15)
[2017-03-14 15:25] VITALS: BP 163/82; PULSE 63; RESP 18; TEMP 95.5; O2SAT 97
[2017-03-14 18:58] LABS: C. DIFF EPI 027 PRESUMPTIVE NEGATIVE (NEGATIVE)
[2017-03-14 20:45] VITALS: BP 168/81; PULSE 61; RESP 16; TEMP 96.9; O2SAT 96
[2017-03-14] MEDS: ESTRADIOL 0.1 MG/GM VAG CREAM 42.5 GM VAGINAL SCH (20:45)
[2017-03-14] MEDS: cefTRIAXone INJ 1,000 MG in SODIUM CHLORIDE 0.9% INJ 100 ML IV SCH (20:45)
[2017-03-14] MEDS: DONEPEZIL HCL 5 MG TAB PO SCH (20:45)
[2017-03-15 00:40] VITALS: BP 173/73; PULSE 60; RESP 17; TEMP 96.8; O2SAT 97
[2017-03-15 04:55] VITALS: BP 172/69; PULSE 59; RESP 17; TEMP 97.1; O2SAT 96
[2017-03-15] MEDS: DOCUSATE SODIUM 50 MG/SENNA 8.6 MG TAB PO SCH ×2 (07:11→22:33)
[2017-03-15] MEDS: MEMANTINE HCL 10 MG TAB PO SCH ×2 (07:45→22:33)
[2017-03-15] MEDS: SUCRALFATE 1 GM TAB PO SCH (07:45)
[2017-03-15] MEDS: CITALOPRAM HYDROBROMIDE 40 MG TAB PO SCH (07:45)
[2017-03-15] MEDS: AMOXICILLIN/CLAVULANATE K 875 MG TAB PO SCH ×2 (07:45→22:33)
[2017-03-15] MEDS: SODIUM CHLORIDE 0.9% FLUSH 10 ML FLUSH IV FLUSH SCH ×2 (07:48→20:48)
[2017-03-15 08:00] VITALS: BP 157/71; PULSE 67; RESP 16; TEMP 96.8; O2SAT 96
[2017-03-15 08:26] LABS: AUTOMATED NEUTROPHIL # 6.1 TH/MM3 (1.8-7.7); BASOPHIL % 0.5 % (0.0-2.0); EOSINOPHIL # 0.5 TH/MM3 (0-0.4); EOSINOPHIL % 5.5 % (0.0-4.0); HEMATOCRIT 33.9 % (35.0-46.0); HEMO FLAGS DIFF FINAL; LYMPH % 16.6 % (9.0-44.0); LYMPHOCYTE # 1.5 TH/MM3 (1.0-4.8); MEAN CELL VOLUME 94.3 FL (80.0-100.0); MEAN CORPUSCULAR HEMOGLOBIN 30.8 PG (27.0-34.0); MEAN CORPUSCULAR HGB CONC 32.6 % (32.0-36.0); MONO % 11.4 % (0.0-8.0); PLATELET COUNT 155 TH/MM3 (150-450); RED CELL DISTRIBUTION WIDTH 14.3 % (11.6-17.2); WHITE BLOOD COUNT 9.2 TH/MM3 (4.0-11.0)
[2017-03-15 08:46] LABS: BICARBONATE 23.3 MEQ/L (21.0-32.0); POTASSIUM 3.6 MEQ/L (3.5-5.1)
[2017-03-15] MEDS: ONDANSETRON HCL 4 MG/2 ML VIAL IVP PRN (10:00)
--- NOTE | 2017-03-15 10:40 | HHI.PR ---
Subjective Remarks in no acute distress. no fever. but still with diarrhea. no abdominal pain, nausea or vomiting. d/w the RN. Objective Vitals Vital Signs Date Time Temp Pulse Resp B/P (MAP) Pulse Ox O2 Delivery O2 Flow Rate FiO2 03/15/17 08:00 96.8 67 16 157/71 (99) 96 03/15/17 07:56 Room Air 03/15/17 04:55 97.1 59 17 172/69 (103) 96 Manual Cuff/Auscultation 03/15/17 00:40 96.8 60 17 173/73 (106) 97 Automatic Cuff 03/14/17 20:45 96.9 61 16 168/81 (110) 96 03/14/17 15:25 95.5 63 18 163/82 (109) 97 03/14/17 12:00 96.7 67 18 139/71 (93) 98 I/O 03/14/17 03/14/17 03/14/17 03/15/17 03/15/17 03/15/17 07:00 15:00 23:00 07:00 15:00 23:00 Intake Total 120 ml 600 ml 240 ml 240 ml Balance 120 ml 600 ml 240 ml 240 ml Intake Oral 120 ml 600 ml 240 ml 240 ml # Voids 5 3 4 5 # Bowel Movements 5 4 0 2 Result Diagram: 03/15/17 0755 03/15/17 0755 Imaging Last Impressions Head CT 03/12/171709 Signed Impressions: Service Date/Time: Sunday, March 12, 2017 18:06 - CONCLUSION: No acute intracranial abnormality demonstrated. Atrophy and chronic white matter changes are again noted. Jadiel Doan MD Chest X-Ray 03/12/171709 Signed Impressions: Service Date/Time: Sunday, March 12, 2017 17:19 - CONCLUSION: 1. No acute cardiopulmonary disease. Ha Mcbride MD Abdomen/Pelvis CT 03/12/17 0000 Signed Impressions: Service Date/Time: Sunday, March 12, 2017 18:11 - CONCLUSION: 1. Limited examination due to motion artifact particularly the upper abdomen. 2. No definitive CT findings to explain patient's abdominal pain. 3. Mild to moderate sigmoid diverticulosis without significant inflammatory change to suggest diverticulitis. 4. Additional ancillary findings, as above. Ha Mcbride MD Objective Remarks GENERAL: This is a well-nourished, well-developed patient, in no apparent distress. CARDIOVASCULAR: Regular rate and regular rhythm without murmurs, gallops, or rubs. RESPIRATORY: Clear to auscultation. Breath sounds equal bilaterally. No wheezes , rales, or rhonchi. GASTROINTESTINAL: Abdomen soft, non-tender, nondistended. Normal, active bowel sounds MUSCULOSKELETAL: Extremities without clubbing, cyanosis, or edema. NEURO: awake and alert- oriented to person and place. Medications and IVs Current Medications Ondansetron HCl (Zofran Inj) 4 mg ONCE ONCE IVP Last administered on 17:35; Start 03/12/17 at 17:15; Stop 03/12/17 at 17:16; Status DC Sodium Chloride (NS Flush) 2 ml UNSCH PRN IVF FLUSH AFTER USING IV ACCESS; Start 03/12/17 at 17:15; Stop 03/12/17 at 20:12; Status DC Sodium Chloride 500 ml @ 500 mls/hr BOLUS ONCE IV Last administered on 17:34; Start 03/12/17 at 17:15; Stop 03/12/17 at 18:14; Status DC Iohexol (Omnipaque 350 Inj) 75 ml STK-MED ONCE IVCONTRAST Last administered on 03/12/17 18:12; Start 03/12/17 at 18:12; Stop 03/12/17 at 18:13; Status DC Sodium Chloride 500 ml @ 500 mls/hr BOLUS ONCE IV Last administered on 18:48; Start 03/12/17 at 18:30; Stop 03/12/17 at 19:29; Status DC Ceftriaxone Sodium 1000 mg/ Sodium Chloride 100 ml @ 200 mls/hr Q24H IV Last administered on 03/14/17 20:45; Start 03/12/17 at 21:00 Sodium Chloride 1,000 ml @ 60 mls/hr [id number] IV Last administered on 09:38; Start 03/12/17 at 20:06 Sodium Chloride (NS Flush) 2 ml UNSCH PRN IV FLUSH FLUSH AFTER USING IV ACCESS ; Start 03/12/17 at 20:15 Sodium Chloride (NS Flush) 2 ml BID IV FLUSH Last administered on 03/15/17 07: 48; Start 03/12/17 at 21:00 Ondansetron HCl (Zofran Inj) 4 mg Q6H PRN IVP NAUSEA OR VOMITING Last administered on 03/15/17 10:00; Start 03/12/17 at 20:15 Acetaminophen (Tylenol) 650 mg Q6H PRN PO FEVER/PAIN SCALE 1 TO 2; Start at 20:15 Acetaminophen/ Hydrocodone Bitart ([place] 5-325 Mg) 1 tab Q4H PRN PO PAIN SCALE 3 TO 5; Start 03/12/17 at 20:15 Acetaminophen/ Hydrocodone Bitart ([place] 10-325 Mg) 1 tab Q4H PRN PO PAIN SCALE 6 TO 10; Start 03/12/17 at 20:15 Senna/Docusate Sodium (Jocelynn-Colace) 1 tab BID PO Last administered on 20:51; Start 03/12/17 at 21:00 Magnesium Hydroxide (Milk Of Magnesia Liq) 30 ml Q12H PRN PO MILD - MODERATE CONSTIPATION; Start 03/12/17 at 20:15 Sennosides (Senokot) 17.2 mg Q12H PRN PO MODERATE - SEVERE CONSTIPATION; Start 03/12/17 at 20:15 Bisacodyl (Dulcolax Supp) 10 mg DAILY PRN RECTAL SEVERE CONSITIPATION; Start at 20:15 Lactulose (Lactulose Liq) 30 ml DAILY PRN PO SEVERE CONSITIPATION; Start at 20:15 Alprazolam (Xanax) 0.25 mg Q4H PRN PO ANXIETY Last administered on 03/14/17 00 :05; Start 03/12/17 at 20:15 Amoxicillin/ Clavulanate Potassium (Augmentin) 875 mg Q12HR PO Last administered on 03/15/17 07:45; Start 03/12/17 at 21:00 Citalopram Hydrobromide (CeleXA) 40 mg DAILY PO Last administered on 03/15/17 07:45; Start 03/13/17 at 09:00 Donepezil HCl (Aricept) 10 mg HS PO Last administered on 03/14/17 20:45; Start 03/12/17 at 21:00 Estradiol (Estrace 0.01% Vag Cream) 1 appl HS VAGINAL Last administered on 03/14 20:45; Start 03/12/17 at 21:00 Memantine (Namenda) 10 mg BID PO Last administered on 03/15/17 07:45; Start at 21:00 Sucralfate (Carafate) 1 gm DAILY PO Last administered on 03/15/17 07:45; Start 03/13/17 at 09:00 Potassium Chloride (KCl) 40 meq ONCE ONCE PO Last administered on 03/14/17 12 :15; Start 03/14/17 at 12:15; Stop 03/14/17 at 12:16; Status DC Potassium Chloride (KCl) 40 meq ONCE ONCE PO Last administered on 03/14/17 16 :15; Start 03/14/17 at 16:15; Stop 03/14/17 at 16:16; Status DC A/P Assessment and Plan A/P 1. Syncope: likely secondary to significant dehydration. CT Head w/ no acute findings. Trop negative. Telemetry, IVF for hydration. 2. GALLO: Secondary to dehydration. improving- continue IV fluid- BMP in am. 3. UTI: treated- stop antibiotic. 4.diarrhea;stool negative for c-diff- Imodium as needed. 5. hypokalemia; replaced. 6. Dementia: At baseline. Resumed home medications. 7. DVT Prophylaxis: SCD/[place]. consulted PT. Discharge Planning dc to SNF tomorrow if diarrhea improves. Jos Erwin MD Mar 15, 2017 10:40
[2017-03-15 12:15] VITALS: BP 156/71; PULSE 65; RESP 16; TEMP 96.2; O2SAT 99
[2017-03-15] MEDS: LOPERAMIDE HCL 2 MG CAP PO PRN (12:17)
[2017-03-15 15:00] VITALS: BP 155/74; PULSE 63; RESP 16; TEMP 95.6; O2SAT 98
[2017-03-15 20:00] VITALS: BP 155/68; PULSE 58; RESP 16; TEMP 96.8; O2SAT 98
[2017-03-15] MEDS ORDERED: SODIUM CHLOR 0.9% 1000 ML INJ 1,000 ML IV ONE (20:06)
[2017-03-15] MEDS: DONEPEZIL HCL 5 MG TAB PO SCH (22:33)
[2017-03-15] MEDS: ESTRADIOL 0.1 MG/GM VAG CREAM 42.5 GM VAGINAL SCH (22:33)
[2017-03-16 00:59] VITALS: BP 165/75; PULSE 63; RESP 17; TEMP 98.5; O2SAT 94
[2017-03-16 04:35] VITALS: BP 183/69; PULSE 68; RESP 17; TEMP 97.7; O2SAT 98
[2017-03-16] MEDS: DOCUSATE SODIUM 50 MG/SENNA 8.6 MG TAB PO SCH ×2 (07:10→21:44)
[2017-03-16] MEDS: CITALOPRAM HYDROBROMIDE 40 MG TAB PO SCH (07:42)
[2017-03-16] MEDS: SODIUM CHLORIDE 0.9% FLUSH 10 ML FLUSH IV FLUSH SCH ×2 (07:42→21:44)
[2017-03-16] MEDS: SUCRALFATE 1 GM TAB PO SCH (07:42)
[2017-03-16] MEDS: AMOXICILLIN/CLAVULANATE K 875 MG TAB PO SCH ×2 (07:42→21:44)
[2017-03-16] MEDS: MEMANTINE HCL 10 MG TAB PO SCH ×2 (07:42→21:44)
[2017-03-16 08:00] VITALS: BP 152/71; PULSE 70; RESP 17; TEMP 97.6; O2SAT 97
[2017-03-16] MEDS: ONDANSETRON HCL 4 MG/2 ML VIAL IVP PRN (09:24)
[2017-03-16] MEDS: LOPERAMIDE HCL 2 MG CAP PO PRN (11:14)
[2017-03-16 11:15] VITALS: BP 182/78; PULSE 69; RESP 16; TEMP 98.4; O2SAT 98
--- NOTE | 2017-03-16 11:59 | HHI.PR ---
Subjective Remarks doesn't look and feel as good as yesterday. had some nausea and vomited once this morning- however her diarrhea has improved. no fever. has some suprapubic pain and tenderness. Objective Vitals Vital Signs Date Time Temp Pulse Resp B/P (MAP) Pulse Ox O2 Delivery O2 Flow Rate FiO2 03/16/17 11:15 98.4 69 16 182/78 (112) 98 03/16/17 08:00 97.6 70 17 152/71 (98) 97 03/16/17 04:35 97.7 68 17 183/69 (107) 98 03/16/17 00:59 98.5 63 17 165/75 (105) 94 03/15/17 20:00 96.8 58 16 155/68 (97) 98 03/15/17 15:00 95.6 63 16 155/74 (101) 98 03/15/17 12:15 96.2 65 16 156/71 (99) 99 I/O 03/15/17 03/15/17 03/15/17 03/16/17 03/16/17 03/16/17 07:00 15:00 23:00 07:00 15:00 23:00 Intake Total 240 ml 300 ml 480 ml 240 ml Balance 240 ml 300 ml 480 ml 240 ml Intake Oral 240 ml 300 ml 480 ml 240 ml # Voids 5 6 5 10 # Bowel Movements 2 6 0 0 Result Diagram: 03/15/17 0755 03/15/17 0755 Imaging Last Impressions Head CT 03/12/17 1710 Signed Impressions: Service Date/Time: Sunday, March 12, 2017 18:06 - CONCLUSION: No acute intracranial abnormality demonstrated. Atrophy and chronic white matter changes are again noted. Jadiel Doan MD Chest X-Ray 03/12/17 1710 Signed Impressions: Service Date/Time: Sunday, March 12, 2017 17:19 - CONCLUSION: 1. No acute cardiopulmonary disease. Ha Mcbride MD Abdomen/Pelvis CT 03/12/17 0000 Signed Impressions: Service Date/Time: Sunday, March 12, 2017 18:11 - CONCLUSION: 1. Limited examination due to motion artifact particularly the upper abdomen. 2. No definitive CT findings to explain patient's abdominal pain. 3. Mild to moderate sigmoid diverticulosis without significant inflammatory change to suggest diverticulitis. 4. Additional ancillary findings, as above. Ha Mcbride MD Objective Remarks GENERAL: This is a well-nourished, well-developed patient, in no apparent distress. CARDIOVASCULAR: Regular rate and regular rhythm without murmurs, gallops, or rubs. RESPIRATORY: Clear to auscultation. Breath sounds equal bilaterally. No wheezes , rales, or rhonchi. GASTROINTESTINAL: Abdomen soft, non-tender, nondistended. Normal, active bowel sounds MUSCULOSKELETAL: Extremities without clubbing, cyanosis, or edema. NEURO: awake and alert- oriented to person and place. Medications and IVs Current Medications Ondansetron HCl (Zofran Inj) 4 mg ONCE ONCE IVP Last administered on 17:35; Start 03/12/17 at 17:15; Stop 03/12/17 at 17:16; Status DC Sodium Chloride (NS Flush) 2 ml UNSCH PRN IVF FLUSH AFTER USING IV ACCESS; Start 03/12/17 at 17:15; Stop 03/12/17 at 20:12; Status DC Sodium Chloride 500 ml @ 500 mls/hr BOLUS ONCE IV Last administered on 17:34; Start 03/12/17 at 17:15; Stop 03/12/17 at 18:14; Status DC Iohexol (Omnipaque 350 Inj) 75 ml STK-MED ONCE IVCONTRAST Last administered on 03/12/17 18:12; Start 03/12/17 at 18:12; Stop 03/12/17 at 18:13; Status DC Sodium Chloride 500 ml @ 500 mls/hr BOLUS ONCE IV Last administered on 18:48; Start 03/12/17 at 18:30; Stop 03/12/17 at 19:29; Status DC Ceftriaxone Sodium 1000 mg/ Sodium Chloride 100 ml @ 200 mls/hr Q24H IV Last administered on 03/14/17 20:45; Start 03/12/17 at 21:00; Stop 03/15/17 at 10:41 ; Status DC Sodium Chloride 1,000 ml @ 60 mls/hr [id number] IV Last administered on 09:38; Start 03/12/17 at 20:06; Stop 03/15/17 at 10:41; Status DC Sodium Chloride (NS Flush) 2 ml UNSCH PRN IV FLUSH FLUSH AFTER USING IV ACCESS ; Start 03/12/17 at 20:15 Sodium Chloride (NS Flush) 2 ml BID IV FLUSH Last administered on 03/15/17 20: 48; Start 03/12/17 at 21:00 Ondansetron HCl (Zofran Inj) 4 mg Q6H PRN IVP NAUSEA OR VOMITING Last administered on 03/16/17 09:24; Start 03/12/17 at 20:15 Acetaminophen (Tylenol) 650 mg Q6H PRN PO FEVER/PAIN SCALE 1 TO 2; Start at 20:15 Acetaminophen/ Hydrocodone Bitart ([place] 5-325 Mg) 1 tab Q4H PRN PO PAIN SCALE 3 TO 5; Start 03/12/17 at 20:15 Acetaminophen/ Hydrocodone Bitart ([place] 10-325 Mg) 1 tab Q4H PRN PO PAIN SCALE 6 TO 10; Start 03/12/17 at 20:15 Senna/Docusate Sodium (Jocelynn-Colace) 1 tab BID PO Last administered on 22:33; Start 03/12/17 at 21:00 Magnesium Hydroxide (Milk Of Magnesia Liq) 30 ml Q12H PRN PO MILD - MODERATE CONSTIPATION; Start 03/12/17 at 20:15 Sennosides (Senokot) 17.2 mg Q12H PRN PO MODERATE - SEVERE CONSTIPATION; Start 03/12/17 at 20:15 Bisacodyl (Dulcolax Supp) 10 mg DAILY PRN RECTAL SEVERE CONSITIPATION; Start at 20:15 Lactulose (Lactulose Liq) 30 ml DAILY PRN PO SEVERE CONSITIPATION; Start at 20:15 Alprazolam (Xanax) 0.25 mg Q4H PRN PO ANXIETY Last administered on 03/14/17 00 :05; Start 03/12/17 at 20:15 Amoxicillin/ Clavulanate Potassium (Augmentin) 875 mg Q12HR PO Last administered on 03/16/17 07:42; Start 03/12/17 at 21:00 Citalopram Hydrobromide (CeleXA) 40 mg DAILY PO Last administered on 03/16/17 07:42; Start 03/13/17 at 09:00 Donepezil HCl (Aricept) 10 mg HS PO Last administered on 03/15/17 22:33; Start 03/12/17 at 21:00 Estradiol (Estrace 0.01% Vag Cream) 1 appl HS VAGINAL Last administered on 03/15 22:33; Start 03/12/17 at 21:00 Memantine (Namenda) 10 mg BID PO Last administered on 03/16/17 07:42; Start at 21:00 Sucralfate (Carafate) 1 gm DAILY PO Last administered on 03/16/17 07:42; Start 03/13/17 at 09:00 Potassium Chloride (KCl) 40 meq ONCE ONCE PO Last administered on 03/14/17 12 :15; Start 03/14/17 at 12:15; Stop 03/14/17 at 12:16; Status DC Potassium Chloride (KCl) 40 meq ONCE ONCE PO Last administered on 03/14/17 16 :15; Start 03/14/17 at 16:15; Stop 03/14/17 at 16:16; Status DC Loperamide HCl (Imodium) 2 mg UNSCH PRN PO DIARRHEA Last administered on 11:14; Start 03/15/17 at 10:45 Sodium Chloride 1,000 ml @ 40 mls/hr Q24H ONCE IV Last administered on 20:48; Start 03/15/17 at 20:06; Stop 03/16/17 at 20:05 A/P Assessment and Plan A/P 1. Syncope: likely secondary to significant dehydration. CT Head w/ no acute findings. Trop negative. Telemetry, IVF for hydration. 2. GALLO: Secondary to dehydration. improving- continue IV fluid- BMP in am. 3. UTI: treated- however complaining of dysuria and suprapubic tenderness- repeat UA. 4.diarrhea;stool negative for c-diff- Imodium as needed. 5.nausea/ emesis; continue supportive care with IV fluid , antiemetics- continue to monitor. 6. hypokalemia; replaced. 7. Dementia: At baseline. Resumed home medications. 8. DVT Prophylaxis: SCD/[place]. consulted PT. Discharge Planning not ready for discharge today. Jos Erwin MD Mar 16, 2017 11:59
[2017-03-16] MEDS ORDERED: PANTOPRAZOLE SODIUM 40 MG VIAL IV PUSH SCH (12:00)
[2017-03-16] MEDS: PANTOPRAZOLE SOD 40 MG DELAYED RELEASE TAB PO SCH (13:04)
[2017-03-16] MEDS: SODIUM CHLOR 0.9% 1000 ML INJ 1,000 ML IV SCH (13:05)
[2017-03-16 14:27] LABS: BACTERIA, URINE OCC /hpf; BLOOD, URINE NEG (NEG); COMMENT (UR) CATH-CULTURE IND; CULTURE IF INDICATED CATH CULTURE IND; GLUCOSE,URINE NEG (NEG); KETONE, URINE 80 mg/dL (NEG); MUCUS URINE FEW /lpf (OCC); NITRITE,URINE NEG (NEG); PH, URINE 5.5 (5.0-8.5); SQUAMOUS EPITHELIAL CELL URINE 1 /hpf (0-5); URIC ACID CRYSTALS, URINE MOD /hpf; URINE COLOR YELLOW (YELLW/STRAW)
[2017-03-16 15:56] VITALS: BP_SYST 183; BP_SYST 195; BP_DIAS 77; BP_DIAS 84; PULSE 70; RESP 16; TEMP 97.3; O2SAT 99
[2017-03-16 20:40] VITALS: BP 185/71; PULSE 67; RESP 20; TEMP 97.6; O2SAT 99
[2017-03-16 20:56] LABS: AUTOMATED NEUTROPHIL # 7.3 TH/MM3 (1.8-7.7); BASOPHIL # 0.1 TH/MM3 (0-0.2); BASOPHIL % 0.5 % (0.0-2.0); EOSINOPHIL # 0.3 TH/MM3 (0-0.4); EOSINOPHIL % 2.5 % (0.0-4.0); HEMATOCRIT 32.3 % (35.0-46.0); HEMO FLAGS DIFF FINAL; LYMPH % 16.7 % (9.0-44.0); LYMPHOCYTE # 1.8 TH/MM3 (1.0-4.8); MEAN CELL VOLUME 94.1 FL (80.0-100.0); MEAN CORPUSCULAR HEMOGLOBIN 31.4 PG (27.0-34.0); MEAN CORPUSCULAR HGB CONC 33.4 % (32.0-36.0); MONO % 11.5 % (0.0-8.0); NEUT % 68.8 % (16.0-70.0); PLATELET COUNT 157 TH/MM3 (150-450); RED BLOOD COUNT 3.43 MIL/MM3 (4.00-5.30); RED CELL DISTRIBUTION WIDTH 13.8 % (11.6-17.2); WHITE BLOOD COUNT 10.6 TH/MM3 (4.0-11.0)
[2017-03-16] MEDS: ESTRADIOL 0.1 MG/GM VAG CREAM 42.5 GM VAGINAL SCH (21:00)
[2017-03-16 21:25] LABS: BICARBONATE 20.8 MEQ/L (21.0-32.0); POTASSIUM 3.4 MEQ/L (3.5-5.1)
[2017-03-16] MEDS: DONEPEZIL HCL 5 MG TAB PO SCH (21:44)
[2017-03-17 00:13] VITALS: BP 153/68; PULSE 69; RESP 18; TEMP 98.5; O2SAT 98
[2017-03-17] MEDS: SODIUM CHLOR 0.9% 1000 ML INJ 1,000 ML IV SCH (05:48)
[2017-03-17 08:35] VITALS: BP 189/82; PULSE 67; RESP 17; TEMP 97.1; O2SAT 97
[2017-03-17] MEDS: DOCUSATE SODIUM 50 MG/SENNA 8.6 MG TAB PO SCH ×2 (09:00→20:03)
[2017-03-17] MEDS: SODIUM CHLORIDE 0.9% FLUSH 10 ML FLUSH IV FLUSH SCH ×2 (09:00→20:03)
[2017-03-17] MEDS: ALPRAZolam 0.25 MG TAB PO PRN ×2 (09:56→20:02)
[2017-03-17] MEDS: AMOXICILLIN/CLAVULANATE K 875 MG TAB PO SCH ×2 (09:56→20:02)
[2017-03-17] MEDS: MEMANTINE HCL 10 MG TAB PO SCH ×2 (09:56→20:02)
[2017-03-17] MEDS: LOPERAMIDE HCL 2 MG CAP PO PRN ×2 (09:56→20:02)
[2017-03-17] MEDS: CITALOPRAM HYDROBROMIDE 40 MG TAB PO SCH (09:56)
[2017-03-17] MEDS: SUCRALFATE 1 GM TAB PO SCH (09:56)
[2017-03-17] MEDS: PANTOPRAZOLE SOD 40 MG DELAYED RELEASE TAB PO SCH (09:56)
[2017-03-17] MEDS ORDERED: ENALAPRILAT 1.25 MG/ML VIAL IV PUSH PRN (10:00)
--- NOTE | 2017-03-17 10:00 | HHI.PR ---
Subjective Remarks in no acute distress. no fever. no nausea today. but still has diarrhea. BP noted to be elevated. d/w the RN. Objective Vitals Vital Signs Date Time Temp Pulse Resp B/P (MAP) Pulse Ox O2 Delivery O2 Flow Rate FiO2 03/17/17 08:35 97.1 67 17 189/82 (117) 97 03/17/17 00:13 98.5 69 18 153/68 (96) 98 03/16/17 20:40 97.6 67 20 185/71 (109) 99 03/16/17 15:56 97.3 70 16 183/77 (112) 99 03/16/17 11:15 98.4 69 16 182/78 (112) 98 I/O 03/16/17 03/16/17 03/16/17 03/17/17 03/17/17 03/17/17 07:00 15:00 23:00 07:00 15:00 23:00 Intake Total 240 ml 743 ml 240 ml 480 ml Balance 240 ml 743 ml 240 ml 480 ml Intake Oral 240 ml 100 ml 240 ml 480 ml IV Total 643 ml # Voids 10 7 5 5 # Bowel Movements 0 1 0 0 Result Diagram: 03/16/17200203/16/172002 Objective Remarks GENERAL: This is a well-nourished, well-developed patient, in no apparent distress. CARDIOVASCULAR: Regular rate and regular rhythm without murmurs, gallops, or rubs. RESPIRATORY: Clear to auscultation. Breath sounds equal bilaterally. No wheezes , rales, or rhonchi. GASTROINTESTINAL: Abdomen soft, non-tender, nondistended. Normal, active bowel sounds MUSCULOSKELETAL: Extremities without clubbing, cyanosis, or edema. NEURO: awake and alert- oriented to person and place. Medications and IVs Current Medications Ondansetron HCl (Zofran Inj) 4 mg ONCE ONCE IVP Last administered on t 17:35; Start 03/12/17 at 17:15; Stop 03/12/17 at 17:16; Status DC Sodium Chloride (NS Flush) 2 ml UNSCH PRN IVF FLUSH AFTER USING IV ACCESS; Start 03/12/17 at 17:15; Stop 03/12/17 at 20:12; Status DC Sodium Chloride 500 ml @ 500 mls/hr BOLUS ONCE IV Last administered on 17:34; Start 03/12/17 at 17:15; Stop 03/12/17 at 18:14; Status DC Iohexol (Omnipaque 350 Inj) 75 ml STK-MED ONCE IVCONTRAST Last administered on 03/12/17 18:12; Start 03/12/17 at 18:12; Stop 03/12/17 at 18:13; Status DC Sodium Chloride 500 ml @ 500 mls/hr BOLUS ONCE IV Last administered on 18:48; Start 03/12/17 at 18:30; Stop 03/12/17 at 19:29; Status DC Ceftriaxone Sodium 1000 mg/ Sodium Chloride 100 ml @ 200 mls/hr Q24H IV Last administered on 03/14/17 20:45; Start 03/12/17 at 21:00; Stop 03/15/17 at 10:41 ; Status DC Sodium Chloride 1,000 ml @ 60 mls/hr [id number] IV Last administered on 09:38; Start 03/12/17 at 20:06; Stop 03/15/17 at 10:41; Status DC Sodium Chloride (NS Flush) 2 ml UNSCH PRN IV FLUSH FLUSH AFTER USING IV ACCESS ; Start 03/12/17 at 20:15 Sodium Chloride (NS Flush) 2 ml BID IV FLUSH Last administered on 03/15/17 20: 48; Start 03/12/17 at 21:00 Ondansetron HCl (Zofran Inj) 4 mg Q6H PRN IVP NAUSEA OR VOMITING Last administered on 03/16/17 09:24; Start 03/12/17 at 20:15 Acetaminophen (Tylenol) 650 mg Q6H PRN PO FEVER/PAIN SCALE 1 TO 2; Start at 20:15 Acetaminophen/ Hydrocodone Bitart ([place] 5-325 Mg) 1 tab Q4H PRN PO PAIN SCALE 3 TO 5; Start 03/12/17 at 20:15 Acetaminophen/ Hydrocodone Bitart ([place] 10-325 Mg) 1 tab Q4H PRN PO PAIN SCALE 6 TO 10; Start 03/12/17 at 20:15 Senna/Docusate Sodium (Jocelynn-Colace) 1 tab BID PO Last administered on 21:44; Start 03/12/17 at 21:00 Magnesium Hydroxide (Milk Of Magnesia Liq) 30 ml Q12H PRN PO MILD - MODERATE CONSTIPATION; Start 03/12/17 at 20:15 Sennosides (Senokot) 17.2 mg Q12H PRN PO MODERATE - SEVERE CONSTIPATION; Start 03/12/17 at 20:15 Bisacodyl (Dulcolax Supp) 10 mg DAILY PRN RECTAL SEVERE CONSITIPATION; Start at 20:15 Lactulose (Lactulose Liq) 30 ml DAILY PRN PO SEVERE CONSITIPATION; Start at 20:15 Alprazolam (Xanax) 0.25 mg Q4H PRN PO ANXIETY Last administered on 03/14/17 00 :05; Start 03/12/17 at 20:15 Amoxicillin/ Clavulanate Potassium (Augmentin) 875 mg Q12HR PO Last administered on 03/16/17 21:44; Start 03/12/17 at 21:00 Citalopram Hydrobromide (CeleXA) 40 mg DAILY PO Last administered on 03/16/17 07:42; Start 03/13/17 at 09:00 Donepezil HCl (Aricept) 10 mg HS PO Last administered on 03/16/17 21:44; Start 03/12/17 at 21:00 Estradiol (Estrace 0.01% Vag Cream) 1 appl HS VAGINAL Last administered on 03/16 21:00; Start 03/12/17 at 21:00 Memantine (Namenda) 10 mg BID PO Last administered on 03/16/17 21:44; Start at 21:00 Sucralfate (Carafate) 1 gm DAILY PO Last administered on 03/16/17 07:42; Start 03/13/17 at 09:00 Potassium Chloride (KCl) 40 meq ONCE ONCE PO Last administered on 03/14/17 12 :15; Start 03/14/17 at 12:15; Stop 03/14/17 at 12:16; Status DC Potassium Chloride (KCl) 40 meq ONCE ONCE PO Last administered on 03/14/17 16 :15; Start 03/14/17 at 16:15; Stop 03/14/17 at 16:16; Status DC Loperamide HCl (Imodium) 2 mg UNSCH PRN PO DIARRHEA Last administered on 11:14; Start 03/15/17 at 10:45 Sodium Chloride 1,000 ml @ 40 mls/hr Q24H ONCE IV Last administered on 20:48; Start 03/15/17 at 20:06; Stop 03/16/17 at 12:42; Status DC Sodium Chloride 1,000 ml @ 60 mls/hr [id number] IV Last administered on 05:48; Start 03/16/17 at 13:00 Pantoprazole Sodium (Protonix Inj) 40 mg Q24H IV PUSH ; Start 03/16/17 at 12:00 ; Status UNV Pantoprazole Sodium (Protonix) 40 mg DAILY PO Last administered on 03/16/17 13 :04; Start 03/16/17 at 13:00 A/P Assessment and Plan A/P 1. Syncope: likely secondary to significant dehydration. CT Head w/ no acute findings. Trop negative. Telemetry, IVF for hydration. 2. GALLO: Secondary to dehydration. continue IV fluid- 3. UTI: continue augmentin for now- will follow the UC. 4.diarrhea;stool negative for [id number] the stool for C/S- Imodium as needed. will consider GI evaluation if no improvement. 5.nausea/ emesis; improved 6. hypokalemia; replaced. 7. Dementia: At baseline. Resumed home medications. 8.elevated BP- will decrease the IV fluid- vasotec prn for now- will monitor. 9. DVT Prophylaxis: SCD/[place]. consulted PT. Discharge Planning dc to rehab tomorrow if stable with improved diarrhea. Jos Erwin MD Mar 17, 2017 10:00
[2017-03-17 12:05] VITALS: BP 144/80; PULSE 70; RESP 17; TEMP 97.5; O2SAT 98
[2017-03-17 16:00] VITALS: BP 158/75; PULSE 70; RESP 18; TEMP 96.6; O2SAT 98
[2017-03-17] MEDS: DONEPEZIL HCL 5 MG TAB PO SCH (20:02)
[2017-03-17 20:45] VITALS: BP 186/81; PULSE 67; RESP 17; TEMP 96.2; O2SAT 98
[2017-03-17] MEDS: ESTRADIOL 0.1 MG/GM VAG CREAM 42.5 GM VAGINAL SCH (21:00)
[2017-03-18 00:40] VITALS: BP 162/69; PULSE 71; RESP 17; TEMP 97.4; O2SAT 96
[2017-03-18 04:08] VITALS: BP 174/74; PULSE 67; RESP 17; TEMP 96.7; O2SAT 97
[2017-03-18] MEDS: SODIUM CHLOR 0.9% 1000 ML INJ 1,000 ML IV SCH (04:32)
[2017-03-18 08:00] VITALS: BP 190/81; PULSE 72; RESP 18; TEMP 96; O2SAT 97
[2017-03-18] MEDS: AMOXICILLIN/CLAVULANATE K 875 MG TAB PO SCH ×2 (08:40→19:33)
[2017-03-18] MEDS: MEMANTINE HCL 10 MG TAB PO SCH ×2 (08:40→19:33)
[2017-03-18] MEDS: DOCUSATE SODIUM 50 MG/SENNA 8.6 MG TAB PO SCH ×2 (08:40→19:33)
[2017-03-18] MEDS: SUCRALFATE 1 GM TAB PO SCH (08:40)
[2017-03-18] MEDS: PANTOPRAZOLE SOD 40 MG DELAYED RELEASE TAB PO SCH (08:40)
[2017-03-18] MEDS: CITALOPRAM HYDROBROMIDE 40 MG TAB PO SCH (08:41)
[2017-03-18] MEDS: SODIUM CHLORIDE 0.9% FLUSH 10 ML FLUSH IV FLUSH SCH ×2 (08:48→19:33)
--- NOTE | 2017-03-18 09:59 | HHI.PR ---
Subjective Remarks in no acute distress. has mild lower abdominal pain. d/w the RN; questionable report of diarrhea- patient is not giving a good history. afebrile. BP trend noted. Objective Vitals Vital Signs Date Time Temp Pulse Resp B/P (MAP) Pulse Ox O2 Delivery O2 Flow Rate FiO2 03/18/17 08:00 96.0 72 18 190/81 (117) 97 03/18/17 04:08 96.7 67 17 174/74 (107) 97 03/18/17 00:40 97.4 71 17 162/69 (100) 96 03/17/17 20:45 96.2 67 17 186/81 (116) 98 03/17/17 16:00 96.6 70 18 158/75 (102) 98 03/17/17 12:05 97.5 70 17 144/80 (101) 98 I/O 03/17/17 03/17/17 03/17/17 03/18/17 03/18/17 03/18/17 07:00 15:00 23:00 07:00 15:00 23:00 Intake Total 480 ml 480 ml 1875 ml 120 ml Balance 480 ml 480 ml 1875 ml 120 ml Intake Oral 480 ml 480 ml 240 ml 120 ml IV Total 1635 ml # Voids 5 4 3 2 # Bowel Movements 0 4 3 2 Result Diagram: 03/16/17200203/16/172002 Imaging Last Impressions Head CT 03/12/171709 Signed Impressions: Service Date/Time: Sunday, March 12, 2017 18:06 - CONCLUSION: No acute intracranial abnormality demonstrated. Atrophy and chronic white matter changes are again noted. Jadiel Doan MD Chest X-Ray 03/12/171709 Signed Impressions: Service Date/Time: Sunday, March 12, 2017 17:19 - CONCLUSION: 1. No acute cardiopulmonary disease. Ha Mcbride MD Abdomen/Pelvis CT 03/12/17 0000 Signed Impressions: Service Date/Time: Sunday, March 12, 2017 18:11 - CONCLUSION: 1. Limited examination due to motion artifact particularly the upper abdomen. 2. No definitive CT findings to explain patient's abdominal pain. 3. Mild to moderate sigmoid diverticulosis without significant inflammatory change to suggest diverticulitis. 4. Additional ancillary findings, as above. Ha Mcbride MD Objective Remarks GENERAL: This is a well-nourished, well-developed patient, in no apparent distress. CARDIOVASCULAR: Regular rate and regular rhythm without murmurs, gallops, or rubs. RESPIRATORY: Clear to auscultation. Breath sounds equal bilaterally. No wheezes , rales, or rhonchi. GASTROINTESTINAL: Abdomen soft, non-tender, nondistended. Normal, active bowel sounds MUSCULOSKELETAL: Extremities without clubbing, cyanosis, or edema. NEURO: awake and alert- oriented to person and place. Medications and IVs Current Medications Ondansetron HCl (Zofran Inj) 4 mg ONCE ONCE IVP Last administered on 17:35; Start 03/12/17 at 17:15; Stop 03/12/17 at 17:16; Status DC Sodium Chloride (NS Flush) 2 ml UNSCH PRN IVF FLUSH AFTER USING IV ACCESS; Start 03/12/17 at 17:15; Stop 03/12/17 at 20:12; Status DC Sodium Chloride 500 ml @ 500 mls/hr BOLUS ONCE IV Last administered on 17:34; Start 03/12/17 at 17:15; Stop 03/12/17 at 18:14; Status DC Iohexol (Omnipaque 350 Inj) 75 ml STK-MED ONCE IVCONTRAST Last administered on 03/12/17 18:12; Start 03/12/17 at 18:12; Stop 03/12/17 at 18:13; Status DC Sodium Chloride 500 ml @ 500 mls/hr BOLUS ONCE IV Last administered on 18:48; Start 03/12/17 at 18:30; Stop 03/12/17 at 19:29; Status DC Ceftriaxone Sodium 1000 mg/ Sodium Chloride 100 ml @ 200 mls/hr Q24H IV Last administered on 03/14/17 20:45; Start 03/12/17 at 21:00; Stop 03/15/17 at 10:41 ; Status DC Sodium Chloride 1,000 ml @ 60 mls/hr [id number] IV Last administered on 09:38; Start 03/12/17 at 20:06; Stop 03/15/17 at 10:41; Status DC Sodium Chloride (NS Flush) 2 ml UNSCH PRN IV FLUSH FLUSH AFTER USING IV ACCESS ; Start 03/12/17 at 20:15 Sodium Chloride (NS Flush) 2 ml BID IV FLUSH Last administered on 03/15/17 20: 48; Start 03/12/17 at 21:00 Ondansetron HCl (Zofran Inj) 4 mg Q6H PRN IVP NAUSEA OR VOMITING Last administered on 03/16/17 09:24; Start 03/12/17 at 20:15 Acetaminophen (Tylenol) 650 mg Q6H PRN PO FEVER/PAIN SCALE 1 TO 2; Start at 20:15 Acetaminophen/ Hydrocodone Bitart ([place] 5-325 Mg) 1 tab Q4H PRN PO PAIN SCALE 3 TO 5; Start 03/12/17 at 20:15 Acetaminophen/ Hydrocodone Bitart ([place] 10-325 Mg) 1 tab Q4H PRN PO PAIN SCALE 6 TO 10; Start 03/12/17 at 20:15 Senna/Docusate Sodium (Jocelynn-Colace) 1 tab BID PO Last administered on 08:40; Start 03/12/17 at 21:00 Magnesium Hydroxide (Milk Of Magnesia Liq) 30 ml Q12H PRN PO MILD - MODERATE CONSTIPATION; Start 03/12/17 at 20:15 Sennosides (Senokot) 17.2 mg Q12H PRN PO MODERATE - SEVERE CONSTIPATION; Start 03/12/17 at 20:15 Bisacodyl (Dulcolax Supp) 10 mg DAILY PRN RECTAL SEVERE CONSITIPATION; Start at 20:15 Lactulose (Lactulose Liq) 30 ml DAILY PRN PO SEVERE CONSITIPATION; Start at 20:15 Alprazolam (Xanax) 0.25 mg Q4H PRN PO ANXIETY Last administered on 03/17/17 20 :02; Start 03/12/17 at 20:15 Amoxicillin/ Clavulanate Potassium (Augmentin) 875 mg Q12HR PO Last administered on 03/18/17 08:40; Start 03/12/17 at 21:00 Citalopram Hydrobromide (CeleXA) 40 mg DAILY PO Last administered on 03/18/17 08:41; Start 03/13/17 at 09:00 Donepezil HCl (Aricept) 10 mg HS PO Last administered on 03/17/17 20:02; Start 03/12/17 at 21:00 Estradiol (Estrace 0.01% Vag Cream) 1 appl HS VAGINAL Last administered on 03/16 21:00; Start 03/12/17 at 21:00 Memantine (Namenda) 10 mg BID PO Last administered on 03/18/17 08:40; Start at 21:00 Sucralfate (Carafate) 1 gm DAILY PO Last administered on 03/18/17 08:40; Start 03/13/17 at 09:00 Potassium Chloride (KCl) 40 meq ONCE ONCE PO Last administered on 03/14/17 12 :15; Start 03/14/17 at 12:15; Stop 03/14/17 at 12:16; Status DC Potassium Chloride (KCl) 40 meq ONCE ONCE PO Last administered on 03/14/17 16 :15; Start 03/14/17 at 16:15; Stop 03/14/17 at 16:16; Status DC Loperamide HCl (Imodium) 2 mg UNSCH PRN PO DIARRHEA Last administered on 20:02; Start 03/15/17 at 10:45 Sodium Chloride 1,000 ml @ 40 mls/hr Q24H ONCE IV Last administered on 20:48; Start 03/15/17 at 20:06; Stop 03/16/17 at 12:42; Status DC Sodium Chloride 1,000 ml @ 40 mls/hr Q24H IV Last administered on 03/18/17 04 :32; Start 03/16/17 at 13:00 Pantoprazole Sodium (Protonix Inj) 40 mg Q24H IV PUSH ; Start 03/16/17 at 12:00 ; Status UNV Pantoprazole Sodium (Protonix) 40 mg DAILY PO Last administered on 03/18/17 08 :40; Start 03/16/17 at 13:00 Enalaprilat (Vasotec Inj) 1.25 mg Q8H PRN IV PUSH SBP> OR = 180, DBP> OR = 100 Last administered on 03/18/17 08:46; Start 03/17/17 at 10:00 A/P Assessment and Plan A/P 1. Syncope: likely secondary to significant dehydration. CT Head w/ no acute findings. Trop negative. Telemetry, IVF for hydration. 2. GALLO: Secondary to dehydration. continue IV fluid- 3. UTI: treated- UC with no growth- stop augmentin. 4.diarrhea;stool negative for [id number] the stool for C/S- Imodium as needed. will consider GI evaluation if no improvement. 5.nausea/ emesis; improved 6. hypokalemia; replaced. 7. Dementia: At baseline. Resumed home medications. 8.elevated BP- one dose of procardia today. 9. DVT Prophylaxis: SCD/[place]. consulted PT. Discharge Planning dc to rehab tomorrow- if no diarrhea and BP improves. Jos Erwin MD Mar 18, 2017 09:59
[2017-03-18] MEDS ORDERED: NIFEdipine 30 MG SUSTAINED RELEASE TAB PO ONE (10:30)
[2017-03-18 12:00] VITALS: BP 186/74; PULSE 70; RESP 17; TEMP 97.6; O2SAT 98
[2017-03-18] MEDS: ALPRAZolam 0.25 MG TAB PO PRN ×2 (13:45→19:33)
[2017-03-18] MEDS: LOPERAMIDE HCL 2 MG CAP PO PRN ×2 (13:45→19:33)
[2017-03-18 16:00] VITALS: BP 183/72; PULSE 64; RESP 17; TEMP 95.7; O2SAT 97
[2017-03-18] MEDS: ESTRADIOL 0.1 MG/GM VAG CREAM 42.5 GM VAGINAL SCH (19:33)
[2017-03-18] MEDS: DONEPEZIL HCL 5 MG TAB PO SCH (19:33)
[2017-03-18 20:51] VITALS: BP 147/65; PULSE 71; RESP 16; TEMP 98; O2SAT 96
[2017-03-19 00:19] VITALS: BP 126/59; PULSE 70; RESP 16; TEMP 97.8; O2SAT 95
[2017-03-19] MEDS: SODIUM CHLOR 0.9% 1000 ML INJ 1,000 ML IV SCH (00:39)
[2017-03-19 04:05] VITALS: BP 141/66; PULSE 73; RESP 16; TEMP 97.4; O2SAT 96
[2017-03-19 08:00] VITALS: BP 145/64; PULSE 75; RESP 19; TEMP 95.6; O2SAT 97
[2017-03-19] MEDS: ALPRAZolam 0.25 MG TAB PO PRN (08:11)
[2017-03-19] MEDS: MEMANTINE HCL 10 MG TAB PO SCH (08:11)
[2017-03-19] MEDS: PANTOPRAZOLE SOD 40 MG DELAYED RELEASE TAB PO SCH (08:11)
[2017-03-19] MEDS: LOPERAMIDE HCL 2 MG CAP PO PRN (08:11)
[2017-03-19] MEDS: AMOXICILLIN/CLAVULANATE K 875 MG TAB PO SCH (08:11)
[2017-03-19] MEDS: CITALOPRAM HYDROBROMIDE 40 MG TAB PO SCH (08:11)
[2017-03-19] MEDS: SUCRALFATE 1 GM TAB PO SCH (08:11)
[2017-03-19] MEDS: SODIUM CHLORIDE 0.9% FLUSH 10 ML FLUSH IV FLUSH SCH (08:58)
[2017-03-19] MEDS: DOCUSATE SODIUM 50 MG/SENNA 8.6 MG TAB PO SCH (08:58)
--- NOTE | 2017-03-19 09:19 | HHI.PR ---
Subjective Remarks in no acute distress. no fever. diarrhea has improved. BP better. questionable difficulty swallowing. d/w the RN. Objective Vitals Vital Signs Date Time Temp Pulse Resp B/P (MAP) Pulse Ox O2 Delivery O2 Flow Rate FiO2 03/19/17 08:00 95.6 75 19 145/64 (91) 97 03/19/17 04:05 97.4 73 16 141/66 (91) 96 03/19/17 00:19 97.8 70 16 126/59 (81) 95 03/18/17 20:51 98.0 71 16 147/65 (92) 96 03/18/17 16:00 95.7 64 17 183/72 (109) 97 03/18/17 12:00 97.6 70 17 186/74 (111) 98 I/O 03/18/17 03/18/17 03/18/17 03/19/17 03/19/17 03/19/17 07:00 15:00 23:00 07:00 15:00 23:00 Intake Total 120 ml 480 ml 240 ml 120 ml Output Total 700 ml Balance 120 ml -220 ml 240 ml 120 ml Intake Oral 120 ml 480 ml 240 ml 120 ml Output Urine Total 700 ml # Voids 2 5 1 6 # Bowel Movements 2 2 1 0 Result Diagram: 03/16/17200203/16/172002 Imaging Last Impressions Head CT 03/12/171709 Signed Impressions: Service Date/Time: Sunday, March 12, 2017 18:06 - CONCLUSION: No acute intracranial abnormality demonstrated. Atrophy and chronic white matter changes are again noted. Jadiel Doan MD Chest X-Ray 03/12/171709 Signed Impressions: Service Date/Time: Sunday, March 12, 2017 17:19 - CONCLUSION: 1. No acute cardiopulmonary disease. Ha Mcbride MD Abdomen/Pelvis CT 03/12/17 0000 Signed Impressions: Service Date/Time: Sunday, March 12, 2017 18:11 - CONCLUSION: 1. Limited examination due to motion artifact particularly the upper abdomen. 2. No definitive CT findings to explain patient's abdominal pain. 3. Mild to moderate sigmoid diverticulosis without significant inflammatory change to suggest diverticulitis. 4. Additional ancillary findings, as above. Ha Mcbride MD Objective Remarks GENERAL: elderly female, in no apparent distress. CARDIOVASCULAR: Regular rate and regular rhythm without murmurs, gallops, or rubs. RESPIRATORY: Clear to auscultation. Breath sounds equal bilaterally. No wheezes , rales, or rhonchi. GASTROINTESTINAL: Abdomen soft, non-tender, nondistended. Normal, active bowel sounds MUSCULOSKELETAL: Extremities without clubbing, cyanosis, or edema. NEURO: awake and alert- oriented to person and place. Procedures none Medications and IVs Current Medications Ondansetron HCl (Zofran Inj) 4 mg ONCE ONCE IVP Last administered on 17:35; Start 03/12/17 at 17:15; Stop 03/12/17 at 17:16; Status DC Sodium Chloride (NS Flush) 2 ml UNSCH PRN IVF FLUSH AFTER USING IV ACCESS; Start 03/12/17 at 17:15; Stop 03/12/17 at 20:12; Status DC Sodium Chloride 500 ml @ 500 mls/hr BOLUS ONCE IV Last administered on 17:34; Start 03/12/17 at 17:15; Stop 03/12/17 at 18:14; Status DC Iohexol (Omnipaque 350 Inj) 75 ml STK-MED ONCE IVCONTRAST Last administered on 03/12/17 18:12; Start 03/12/17 at 18:12; Stop 03/12/17 at 18:13; Status DC Sodium Chloride 500 ml @ 500 mls/hr BOLUS ONCE IV Last administered on 18:48; Start 03/12/17 at 18:30; Stop 03/12/17 at 19:29; Status DC Ceftriaxone Sodium 1000 mg/ Sodium Chloride 100 ml @ 200 mls/hr Q24H IV Last administered on 03/14/17 20:45; Start 03/12/17 at 21:00; Stop 03/15/17 at 10:41 ; Status DC Sodium Chloride 1,000 ml @ 60 mls/hr [id number] IV Last administered on 09:38; Start 03/12/17 at 20:06; Stop 03/15/17 at 10:41; Status DC Sodium Chloride (NS Flush) 2 ml UNSCH PRN IV FLUSH FLUSH AFTER USING IV ACCESS ; Start 03/12/17 at 20:15 Sodium Chloride (NS Flush) 2 ml BID IV FLUSH Last administered on 03/15/17 20: 48; Start 03/12/17 at 21:00 Ondansetron HCl (Zofran Inj) 4 mg Q6H PRN IVP NAUSEA OR VOMITING Last administered on 03/16/17 09:24; Start 03/12/17 at 20:15 Acetaminophen (Tylenol) 650 mg Q6H PRN PO FEVER/PAIN SCALE 1 TO 2; Start at 20:15 Acetaminophen/ Hydrocodone Bitart ([place] 5-325 Mg) 1 tab Q4H PRN PO PAIN SCALE 3 TO 5; Start 03/12/17 at 20:15 Acetaminophen/ Hydrocodone Bitart ([place] 10-325 Mg) 1 tab Q4H PRN PO PAIN SCALE 6 TO 10; Start 03/12/17 at 20:15 Senna/Docusate Sodium (Jocelynn-Colace) 1 tab BID PO Last administered on 08:40; Start 03/12/17 at 21:00 Magnesium Hydroxide (Milk Of Magnesia Liq) 30 ml Q12H PRN PO MILD - MODERATE CONSTIPATION; Start 03/12/17 at 20:15 Sennosides (Senokot) 17.2 mg Q12H PRN PO MODERATE - SEVERE CONSTIPATION; Start 03/12/17 at 20:15 Bisacodyl (Dulcolax Supp) 10 mg DAILY PRN RECTAL SEVERE CONSITIPATION; Start at 20:15 Lactulose (Lactulose Liq) 30 ml DAILY PRN PO SEVERE CONSITIPATION; Start at 20:15 Alprazolam (Xanax) 0.25 mg Q4H PRN PO ANXIETY Last administered on 03/19/17 08 :11; Start 03/12/17 at 20:15 Amoxicillin/ Clavulanate Potassium (Augmentin) 875 mg Q12HR PO Last administered on 03/19/17 08:11; Start 03/12/17 at 21:00 Citalopram Hydrobromide (CeleXA) 40 mg DAILY PO Last administered on 03/19/17 08:11; Start 03/13/17 at 09:00 Donepezil HCl (Aricept) 10 mg HS PO Last administered on 03/18/17 19:33; Start 03/12/17 at 21:00 Estradiol (Estrace 0.01% Vag Cream) 1 appl HS VAGINAL Last administered on 03/16 21:00; Start 03/12/17 at 21:00 Memantine (Namenda) 10 mg BID PO Last administered on 03/19/17 08:11; Start at 21:00 Sucralfate (Carafate) 1 gm DAILY PO Last administered on 03/19/17 08:11; Start 03/13/17 at 09:00 Potassium Chloride (KCl) 40 meq ONCE ONCE PO Last administered on 03/14/17 12 :15; Start 03/14/17 at 12:15; Stop 03/14/17 at 12:16; Status DC Potassium Chloride (KCl) 40 meq ONCE ONCE PO Last administered on 03/14/17 16 :15; Start 03/14/17 at 16:15; Stop 03/14/17 at 16:16; Status DC Loperamide HCl (Imodium) 2 mg UNSCH PRN PO DIARRHEA Last administered on 08:11; Start 03/15/17 at 10:45 Sodium Chloride 1,000 ml @ 40 mls/hr Q24H ONCE IV Last administered on 20:48; Start 03/15/17 at 20:06; Stop 03/16/17 at 12:42; Status DC Sodium Chloride 1,000 ml @ 40 mls/hr Q24H IV Last administered on 03/18/17 04 :32; Start 03/16/17 at 13:00 Pantoprazole Sodium (Protonix Inj) 40 mg Q24H IV PUSH ; Start 03/16/17 at 12:00 ; Status UNV Pantoprazole Sodium (Protonix) 40 mg DAILY PO Last administered on 03/19/17 08 :11; Start 03/16/17 at 13:00 Enalaprilat (Vasotec Inj) 1.25 mg Q8H PRN IV PUSH SBP> OR = 180, DBP> OR = 100 Last administered on 03/18/17 08:46; Start 03/17/17 at 10:00 Nifedipine (Procardia Xl) 30 mg ONCE ONCE PO Last administered on 9/23/17at 13 :44; Start 03/18/17 at 10:30; Stop 03/18/17 at 10:31; Status DC A/P Assessment and Plan A/P 1. Syncope: likely secondary to significant dehydration. CT Head w/ no acute findings. Trop negative. Telemetry, IVF for hydration. 2. GALLO: Secondary to dehydration. continue IV fluid- 3. UTI: treated- UC with no growth- stopped augmentin. 4.diarrhea;stool negative for g-nisa-[id number] the stool for C/S- Imodium as needed.improved. 5.nausea/ emesis; improved 6. hypokalemia; replaced. 7. Dementia: At baseline. Resumed home medications. 8.elevated BP- due to anxiety?- better today. f/u as outpatient. 9.questionable dysphagia- will consult ST. 10. DVT Prophylaxis: SCD/[place]. consulted PT. Discharge Planning dc to rehab today- pending ST evaluation. see med list. d/w the patient and RN. time spent 31 min. Jos Erwin MD Mar 19, 2017 09:19
[2017-03-19] MEDS ORDERED: ALPR0.25 PO (09:20)
--- NOTE | 2017-03-19 09:21 | HHI.DS ---
Discharge Summary Admission Date Mar 12, 2017 at 19:45 Discharge Date: Mar 19, 2017 Admitting Diagnosis syncope, GALLO, dehydration (1) Syncope ICD Code: R55 - Syncope and collapse Diagnosis: Principal Status: Acute (2) GALLO (acute kidney injury) ICD Code: N17.9 - Acute kidney failure, unspecified Diagnosis: Principal (3) UTI (urinary tract infection) ICD Code: N39.0 - Urinary tract infection, site not specified Diagnosis: Secondary (4) Dementia ICD Code: F03.90 - Unspecified dementia without behavioral disturbance Diagnosis: Secondary Status: Chronic Procedures none Brief History - From Admission This is an 87-year-old female with a PMH of Anxiety, HTN, Hyperlipidemia, Dementia and Arthritis was brought to the ER by EMS secondary to syncopal event. Patient was recently admitted 03/10-03/12/17 for Acute Encephalopathy and UTI, s/p IV Abx, d/c'd home on 03/12/17, per Son pt was at baseline at the time of discharge, however once home pt had syncopal event lasting approx 10min. No head trauma as he was able to catch her before she hit the ground. Did have few episodes of vomiting and diarrhea after waking. On arrival, BP 160/70, HR 89, O2 sat 96% on RA Afebrile. W WBC 15.7, previously normal on 03/11/17. Creatinine 1.74, produces 0.61 on 03/11/17. Troponin negative. INR 1.1. UA negative, however UA 03/10/17 positive for UTI. Urine Culture 03/10/17 +[facility]. CT Head with no acute findings. CXR negative. CBC/BMP: 03/16/17200203/16/172002 Significant Findings Laboratory Tests Test 03/16/17 13:05 03/16/17 20:03 Urine Turbidity CLOUDY (CLEAR) Urine Ketones 80 mg/dL (NEG) Urine Leukocyte Esterase MOD (NEG) Urine Uric Acid Crystals MOD /hpf (NONE) Urine Bacteria OCC /hpf (NONE) Urine Mucus FEW /lpf (OCC) Red Blood Count 3.43 MIL/MM3 (4.00-5.30) Hemoglobin 10.8 GM/DL (11.6-15.3) Hematocrit 32.3 % (35.0-46.0) Monocytes (%) (Auto) 11.5 % (0.0-8.0) Monocytes # (Auto) 1.2 TH/MM3 (0-0.9) Creatinine 0.42 MG/DL (0.50-1.00) Random Glucose 73 MG/DL (74-106) Calcium Level 8.2 MG/DL (8.5-10.1) Potassium Level 3.4 MEQ/L (3.5-5.1) Carbon Dioxide Level 20.8 MEQ/L (21.0-32.0) PE at Discharge GENERAL: elderly female, in no apparent distress. CARDIOVASCULAR: Regular rate and regular rhythm without murmurs, gallops, or rubs. RESPIRATORY: Clear to auscultation. Breath sounds equal bilaterally. No wheezes , rales, or rhonchi. GASTROINTESTINAL: Abdomen soft, non-tender, nondistended. Normal, active bowel sounds MUSCULOSKELETAL: Extremities without clubbing, cyanosis, or edema. NEURO: awake and alert- oriented to person and place. Hospital Course 1. Syncope: likely secondary to significant dehydration. CT Head w/ no acute findings. Trop negative. Telemetry, IVF for hydration. 2. GALLO: Secondary to dehydration. continue IV fluid- 3. UTI: treated- UC with no growth- stopped augmentin. 4.diarrhea;stool negative for [id number]-[id number] the stool for C/S- Imodium as needed.improved. 5.nausea/ emesis; improved 6. hypokalemia; replaced. 7. Dementia: At baseline. Resumed home medications. 8.elevated BP- due to anxiety?- better today. f/u as outpatient. 9.questionable dysphagia- will consult ST. 10. DVT Prophylaxis: SCD/[place]. Pt Condition on Discharge: Fair Discharge Disposition: Discharge to SNF Discharge Time: > 30 minutes Discharge Instructions DIET: Follow Instructions for: Heart Healthy Diet Activities you can perform: Regular-No Restrictions Follow up Referrals: PCP Follow-up Continued Medications: Alendronate (Alendronate) 70 Mg Tab 70 MG PO Q7D for Osteporosis Treatment, #4 TAB 0 Refills Alprazolam (Alprazolam) 0.25 Mg Tab 0.25 MG PO Q4H PRN for ANXIETY, #14 TAB 0 Refills (This prescription has been renewed) Aspirin DR (Ecotrin Low Strength) 81 Mg Tabdr 81 MG PO DAILY, #30 TAB 0 Refills Citalopram (Citalopram) 40 Mg Tab 40 MG PO DAILY for Control Depression, #30 TAB 0 Refills Donepezil (Donepezil) 10 Mg Tab 10 MG PO HS for Dementia, #30 TAB 0 Refills Estradiol Vaginal (Estrace Vaginal) 0.01% Cream 1 APPL VAGINAL HS, #1 TUBE 0 Refills Memantine (Memantine) 10 Mg Tab 10 MG PO BID for Alzheimer's Dementia, TAB 0 Refills Ondansetron (Zofran) 4 Mg Tab 4 MG PO Q6HR PRN for NAUSEA OR VOMITING, #10 TAB 0 Refills Sucralfate (Sucralfate) 1 Gm Tab 1 GM PO DAILY for Duodenal ulcer, #120 TAB 0 Refills on empty stomach [Align Probiotic] () DAILY Discontinued Medications: Amoxicillin-Clavulanate (Amoxicillin-Clavulanate) 875-125 mg Tab 875 MG PO Q12HR for Infection, #10 TAB not for use in CrCl <30 mL/minute Phenazopyridine (Pyridium) 100 Mg Tab 100 MG PO Q8HR for Dysuria, #5 TAB 0 Refills Jos Erwin MD Mar 19, 2017 09:21
[2017-03-19 12:00] VITALS: BP 142/69; PULSE 86; RESP 17; TEMP 96; O2SAT 97
== END 2017-03-19 13:47 | DRG 682 ==
LOC: NEPC 16:36 → NEDA 19:45 → N06B 22:34 → N06A 03-14 16:53
PROVIDERS: ADMIT Internal Medicine; ATTEND Internal Medicine
DX: N17.9 Acute kidney failure, unspecified (principal); G93.40 Encephalopathy, unspecified; N39.0 Urinary tract infection, site not specified; F03.90 Unspecified dementia, unspecified severity, without behavioral disturbance, psychotic disturbance, mood disturbance, and anxiety; E86.0 Dehydration; R55 Syncope and collapse; I10 Essential (primary) hypertension; E78.5 Hyperlipidemia, unspecified; M19.90 Unspecified osteoarthritis, unspecified site; K21.9 Gastro-esophageal reflux disease without esophagitis; E87.6 Hypokalemia; R19.7 Diarrhea, unspecified; R11.2 Nausea with vomiting, unspecified; F41.9 Anxiety disorder, unspecified; F32.9 Major depressive disorder, single episode, unspecified; B96.4 Proteus (mirabilis) (morganii) as the cause of diseases classified elsewhere; R94.31 Abnormal electrocardiogram [ECG] [EKG]; Z23 Encounter for immunization
CPT/HCPCS: 70450; 71010; 74177; 76937; 80048; 80053; 81001; 82550; 83690; 83735; 84484; 85025; 85610; 85730; 87077; 87086; 87186; 87493; 87506; 90471; 90732; 93005; 96361; 96365; 96366; 96372; 96374; 96375; G0009; G0378; J0696; J0744; J2405; J7030; J7040; P9612; Q9967